=== PATIENT | female | born 1955 | race Caucasian/White ===

== ENCOUNTER 2019-11-03 08:24 | Outpatient (CLI) | payer BC, SELFPAY ==
--- NOTE | ~2019-11-03 | MM_ITS ---
EXAMINATION: MM screening [facility] BI w susanne HISTORY: Screening mammogram TECHNIQUE: Craniocaudal and mediolateral oblique 3-D tomosynthesis images were obtained and synthetic 2-D images were generated. CAD analysis was submitted and interpreted. COMPARISON: Comparison to multiple prior studies sequentially, with oldest reviewed study dated 04/03. BREAST PARENCHYMAL COMPOSITION: There are scattered areas of fibroglandular density. FINDINGS: There is no evidence of suspicious mass, calcification, or architectural distortion to sugg est malignancy in either breast. There has been no suspicious interval change. IMPRESSION: 1. No mammographic evidence of malignancy. 2. Recommend routine screening mammography in one year. BI-RADS Category 1: Negative Reviewed, dictated and finalized at location A.
== END 2019-11-03 08:25 | disposition home or self-care (01) ==
LOC: ANHIMG 08:26
PROVIDERS: PCP Family Medicine; Visit Provider Obstetrics & Gynecology
DX: Z12.31 Encounter for screening mammogram for malignant neoplasm of breast (principal)
CPT/HCPCS: 77063; 77067

== ENCOUNTER → 2019-12-15 16:18 | Outpatient (CLI) | payer BC, SELFPAY ==
--- NOTE | ~2019-12-15 | XR_ITS ---
EXAMINATION: XR ankle RT min 3V EXAM DATE: 12/15/2019 16:31 INDICATION: Initial encounter following injury, with pain of the right ankle. TECHNIQUE: Right ankle frontal, lateral and oblique projections obtained and reviewed. Comparison is made to prior examination from 10/19/2013. FINDINGS: The right ankle mortise appears intact. Small inferior calcaneal spur. There are no acut e fractures or dislocations identified. There is no subcutaneous gas. The soft tissue is unremarkab le. There are no radiopaque foreign bodies. IMPRESSION: 1. XR ankle RT min 3V exam without acute osseous findings. Reviewed, dictated and finalized at location A.
== END ==
PROVIDERS: PCP Family Medicine; Visit Provider Family Medicine
DX: S99.911A Unspecified injury of right ankle, initial encounter (principal); E78.2 Mixed hyperlipidemia; I10 Essential (primary) hypertension; E03.9 Hypothyroidism, unspecified; E04.1 Nontoxic single thyroid nodule; E55.9 Vitamin D deficiency, unspecified; R73.03 Prediabetes; Z78.0 Asymptomatic menopausal state
CPT/HCPCS: 73610

== ENCOUNTER 2020-03-06 13:14 | Outpatient (CLI) | payer BC, SELFPAY ==
[2020-03-06 13:28] LABS: Basophils Absolute Auto 0.1 K/mm3 (0.0-0.1); Basophils Percent Auto 2.1 % (0.2-1.2); Eosinophils Absolute Auto 0.2 K/mm3 (0-0.3); Eosinophils Percent Auto 4.5 % (0-4.4); Hemoglobin 14.4 g/dL (12.0-15.0); Immature Granulocyte Absolute 0.01 K/mm3 (0.00-0.031); Immature Granulocyte Percent A 0.2 % (0-0.5); Lymphocytes Absolute Auto 2.01 K/mm3 (0.9-3.2); Lymphocytes Percent Auto 37.9 % (18.3-44.2); Mean Corpuscular Hemoglobin 28.8 pg (26-34); Mean Platelet Volume 9.4 fl (7.4-10.4); Monocytes Absolute Auto 0.3 K/mm3 (0.1-0.6); Monocytes Percent Auto 6.4 % (2.6-8.5); Neutrophils Absolute Auto 2.6 K/mm3 (1.3-6.7); Neutrophils Percent Auto 48.9 % (45.5-73.1); Platelet Count Result 759 k/mm3 (150-375); Red Cell Distribution Width 15.9 % (11.5-14.5); White Blood Count 5.3 K/mm3 (4.5-10.0)
[2020-03-06 13:32] LABS: Blood Urea Nitrogen 11 mg/dL (8-26); Carbon Dioxide 32 mmol/L (22-30); Chloride 99 mmol/L (98-109); Estimated Glomerular Filt Rate 56; Glucose 136 mg/dL (70-105); Potassium 3.7 mmol/L (3.5-4.9); Sodium 141 mmol/L (138-146)
== END 2020-03-06 13:15 | disposition home or self-care (01) ==
LOC: ANHLAB 13:16
PROVIDERS: PCP Family Medicine; Visit Provider Internal Medicine Hematology & Oncology
DX: D47.3 Essential (hemorrhagic) thrombocythemia (principal)
CPT/HCPCS: 36415; 80048; 85025

== ENCOUNTER 2020-03-21 13:12 | Outpatient (CLI) | payer BC, SELFPAY ==
[2020-03-21 13:33] LABS: Basophils Absolute Auto 0.1 K/mm3 (0.0-0.1); Basophils Percent Auto 1.9 % (0.2-1.2); Eosinophils Absolute Auto 0.1 K/mm3 (0-0.3); Eosinophils Percent Auto 1.7 % (0-4.4); Hemoglobin 14.3 g/dL (12.0-15.0); Immature Granulocyte Absolute 0.01 K/mm3 (0.00-0.031); Immature Granulocyte Percent A 0.2 % (0-0.5); Lymphocytes Percent Auto 28.1 % (18.3-44.2); Mean Corpuscular HGB Conc 32.5 g/dl (32-36); Mean Corpuscular Hemoglobin 30.1 pg (26-34); Mean Corpuscular Volume 92.6 fl (80-100); Mean Platelet Volume 9.8 fl (7.4-10.4); Monocytes Absolute Auto 0.3 K/mm3 (0.1-0.6); Neutrophils Percent Auto 63.1 % (45.5-73.1); Platelet Count Result 533 k/mm3 (150-375); Red Blood Count 4.75 M/mm3 (4.2-5.4); Red Cell Distribution Width 17.5 % (11.5-14.5); White Blood Count 6.4 K/mm3 (4.5-10.0)
[2020-03-21 13:37] LABS: Blood Urea Nitrogen 12 mg/dL (8-26); Carbon Dioxide 31 mmol/L (22-30); Chloride 99 mmol/L (98-109); Estimated Glomerular Filt Rate > 60; Glucose 139 mg/dL (70-105); Potassium 3.7 mmol/L (3.5-4.9); Sodium 142 mmol/L (138-146)
== END 2020-03-21 13:13 | disposition home or self-care (01) ==
LOC: ANHLAB 13:13
PROVIDERS: PCP Family Medicine; Visit Provider Internal Medicine Hematology & Oncology
DX: D47.3 Essential (hemorrhagic) thrombocythemia (principal)
CPT/HCPCS: 36415; 80048; 85025

== ENCOUNTER 2020-04-19 14:13 | Outpatient (CLI) | payer BC, SELFPAY ==
[2020-04-19 14:25] LABS: Basophils Absolute Auto 0.1 K/mm3 (0.0-0.1); Eosinophils Absolute Auto 0.1 K/mm3 (0-0.3); Eosinophils Percent Auto 1.4 % (0-4.4); Hematocrit 40.8 % (37.0-47.0); Hemoglobin 13.6 g/dL (12.0-15.0); Immature Granulocyte Absolute 0.01 K/mm3 (0.00-0.031); Immature Granulocyte Percent A 0.1 % (0-0.5); Lymphocytes Absolute Auto 1.89 K/mm3 (0.9-3.2); Lymphocytes Percent Auto 27.3 % (18.3-44.2); Mean Corpuscular HGB Conc 33.3 g/dl (32-36); Mean Corpuscular Hemoglobin 31.4 pg (26-34); Mean Corpuscular Volume 94.2 fl (80-100); Mean Platelet Volume 9.6 fl (7.4-10.4); Monocytes Absolute Auto 0.5 K/mm3 (0.1-0.6); Monocytes Percent Auto 6.6 % (2.6-8.5); Neutrophils Absolute Auto 4.4 K/mm3 (1.3-6.7); Neutrophils Percent Auto 63.6 % (45.5-73.1); Platelet Count Result 442 k/mm3 (150-375); Red Blood Count 4.33 M/mm3 (4.2-5.4); White Blood Count 6.9 K/mm3 (4.5-10.0)
[2020-04-19 15:40] LABS: Blood Urea Nitrogen 13 mg/dL (8-26); Carbon Dioxide 33 mmol/L (22-30); Chloride 100 mmol/L (98-109); Estimated Glomerular Filt Rate 56; Potassium 3.6 mmol/L (3.5-4.9); Sodium 143 mmol/L (138-146)
[2020-04-19 15:41] LABS: Glucose 105 mg/dL (70-105)
== END 2020-04-19 14:14 | disposition home or self-care (01) ==
LOC: ANHLAB 14:15
PROVIDERS: PCP Family Medicine; Visit Provider Internal Medicine Hematology & Oncology
DX: D47.3 Essential (hemorrhagic) thrombocythemia (principal)
CPT/HCPCS: 36415; 80048; 85025

== ENCOUNTER 2020-05-17 11:24 | Outpatient (CLI) | payer BC, SELFPAY ==
[2020-05-17 11:39] LABS: Hematocrit 42.3 % (37.0-47.0); Hemoglobin 13.9 g/dL (12.0-15.0); Mean Corpuscular HGB Conc 32.9 g/dl (32-36); Mean Corpuscular Hemoglobin 31.8 pg (26-34); Mean Corpuscular Volume 96.8 fl (80-100); Mean Platelet Volume 9.6 fl (7.4-10.4); Platelet Count Result 571 k/mm3 (150-375); Red Blood Count 4.37 M/mm3 (4.2-5.4); Red Cell Distribution Width 15.9 % (11.5-14.5); White Blood Count 8.3 K/mm3 (4.5-10.0)
[2020-05-17 16:36] LABS: Anion Gap 3 mmol/L (8-16); Blood Urea Nitrogen 14 mg/dL (7-17); Calcium 9.9 mg/dL (8.4-10.2); Carbon Dioxide 36 mmol/L (22-30); Chloride 101 mmol/L (98-107); Estimated Glomerular Filt Rate > 60; Glucose 104 mg/dL (65-105); Potassium 4.4 mmol/L (3.4-5.0); Sodium 140 mmol/L (137-145)
== END 2020-05-17 11:25 | disposition home or self-care (01) ==
LOC: ANHLAB 11:26
PROVIDERS: PCP Family Medicine; Visit Provider Internal Medicine Hematology & Oncology
DX: D47.3 Essential (hemorrhagic) thrombocythemia (principal)
CPT/HCPCS: 36415; 80048; 85027

== ENCOUNTER 2020-06-20 13:58 | Outpatient (CLI) | payer BC, SELFPAY ==
[2020-06-20 14:10] LABS: Basophils Absolute Auto 0.1 K/mm3 (0.0-0.1); Eosinophils Absolute Auto 0.1 K/mm3 (0-0.3); Eosinophils Percent Auto 1.1 % (0-4.4); Hematocrit 43.1 % (37.0-47.0); Immature Granulocyte Absolute 0.02 K/mm3 (0.00-0.031); Immature Granulocyte Percent A 0.2 % (0-0.5); Lymphocytes Absolute Auto 2.38 K/mm3 (0.9-3.2); Lymphocytes Percent Auto 27.3 % (18.3-44.2); Mean Corpuscular HGB Conc 32.5 g/dl (32-36); Mean Corpuscular Hemoglobin 32.7 pg (26-34); Mean Corpuscular Volume 100.7 fl (80-100); Mean Platelet Volume 9.8 fl (7.4-10.4); Monocytes Absolute Auto 0.7 K/mm3 (0.1-0.6); Monocytes Percent Auto 7.7 % (2.6-8.5); Neutrophils Absolute Auto 5.5 K/mm3 (1.3-6.7); Neutrophils Percent Auto 62.7 % (45.5-73.1); Platelet Count Result 634 k/mm3 (150-375); Red Blood Count 4.28 M/mm3 (4.2-5.4); Red Cell Distribution Width 12.9 % (11.5-14.5); White Blood Count 8.7 K/mm3 (4.5-10.0)
== END 2020-06-20 13:59 | disposition home or self-care (01) ==
LOC: ANHLAB 14:00
PROVIDERS: PCP Family Medicine; Visit Provider Internal Medicine Hematology & Oncology
DX: D47.3 Essential (hemorrhagic) thrombocythemia (principal)
CPT/HCPCS: 36415; 85025

== ENCOUNTER 2020-08-22 08:46 | Outpatient (CLI) | payer BC, SELFPAY ==
[2020-08-22 09:04] LABS: Basophils Absolute Auto 0.1 K/mm3 (0.0-0.1); Basophils Percent Auto 0.9 % (0.2-1.2); Eosinophils Absolute Auto 0.1 K/mm3 (0-0.3); Eosinophils Percent Auto 1.2 % (0-4.4); Hematocrit 42.8 % (37.0-47.0); Immature Granulocyte Absolute 0.02 K/mm3 (0.00-0.031); Immature Granulocyte Percent A 0.3 % (0-0.5); Lymphocytes Absolute Auto 2.03 K/mm3 (0.9-3.2); Lymphocytes Percent Auto 31.2 % (18.3-44.2); Mean Corpuscular HGB Conc 32.7 g/dl (32-36); Mean Corpuscular Hemoglobin 32.6 pg (26-34); Mean Corpuscular Volume 99.5 fl (80-100); Mean Platelet Volume 9.2 fl (7.4-10.4); Monocytes Absolute Auto 0.4 K/mm3 (0.1-0.6); Monocytes Percent Auto 6.5 % (2.6-8.5); Neutrophils Absolute Auto 3.9 K/mm3 (1.3-6.7); Neutrophils Percent Auto 59.9 % (45.5-73.1); Platelet Count Result 414 k/mm3 (150-375); Red Cell Distribution Width 13.5 % (11.5-14.5); White Blood Count 6.5 K/mm3 (4.5-10.0)
[2020-08-22 09:07] LABS: Blood Urea Nitrogen 12 mg/dL (8-26); Carbon Dioxide 31 mmol/L (22-30); Chloride 99 mmol/L (98-109); Estimated Glomerular Filt Rate 9; Glucose 108 mg/dL (70-105); Potassium 3.7 mmol/L (3.5-4.9); Sodium 140 mmol/L (138-146)
[2020-08-22 11:18] LABS: Alanine Aminotransferase 12 U/L (4-35); Albumin Level 4.5 g/dL (3.5-5.1); Alkaline Phosphatase 68 U/L (38-126); Anion Gap 6 mmol/L (8-16); Aspartate Amino Transferase 21 U/L (14-36); Bilirubin,Total 0.4 mg/dL (0.2-1.3); Blood Urea Nitrogen 13 mg/dL (7-17); Calcium 9.5 mg/dL (8.4-10.2); Carbon Dioxide 32 mmol/L (22-30); Chloride 101 mmol/L (98-107); Estimated Glomerular Filt Rate > 60; Glucose 80 mg/dL (65-105); Potassium 4.2 mmol/L (3.4-5.0); Sodium 139 mmol/L (137-145)
== END 2020-08-22 08:47 | disposition home or self-care (01) ==
LOC: ANHLAB 08:47
PROVIDERS: PCP Family Medicine; Visit Provider Internal Medicine Hematology & Oncology
DX: D47.3 Essential (hemorrhagic) thrombocythemia (principal)
CPT/HCPCS: 36415; 80048; 80053; 85025

== ENCOUNTER 2020-10-22 09:37 | Outpatient (CLI) | payer BC, SELFPAY ==
[2020-10-22 09:53] LABS: Basophils Absolute Auto 0.1 K/mm3 (0.0-0.1); Eosinophils Absolute Auto 0.1 K/mm3 (0-0.3); Eosinophils Percent Auto 1.2 % (0-4.4); Hematocrit 43.2 % (37.0-47.0); Hemoglobin 14.1 g/dL (12.0-15.0); Immature Granulocyte Absolute 0.02 K/mm3 (0.00-0.031); Immature Granulocyte Percent A 0.3 % (0-0.5); Lymphocytes Absolute Auto 1.96 K/mm3 (0.9-3.2); Lymphocytes Percent Auto 28.3 % (18.3-44.2); Mean Corpuscular HGB Conc 32.6 g/dl (32-36); Mean Corpuscular Hemoglobin 32.8 pg (26-34); Mean Corpuscular Volume 100.5 fl (80-100); Mean Platelet Volume 9.5 fl (7.4-10.4); Monocytes Absolute Auto 0.5 K/mm3 (0.1-0.6); Monocytes Percent Auto 7.2 % (2.6-8.5); Neutrophils Absolute Auto 4.3 K/mm3 (1.3-6.7); Platelet Count Result 456 k/mm3 (150-375); Red Cell Distribution Width 12.8 % (11.5-14.5); White Blood Count 6.9 K/mm3 (4.5-10.0)
[2020-10-22 09:58] LABS: Blood Urea Nitrogen 12 mg/dL (8-26); Carbon Dioxide 31 mmol/L (22-30); Chloride 101 mmol/L (98-109); Estimated Glomerular Filt Rate 13; Glucose 106 mg/dL (70-105); Potassium 4.5 mmol/L (3.5-4.9); Sodium 143 mmol/L (138-146)
== END 2020-10-22 09:38 | disposition home or self-care (01) ==
LOC: ANHLAB 09:40
PROVIDERS: PCP Family Medicine; Visit Provider Internal Medicine Hematology & Oncology
DX: D47.3 Essential (hemorrhagic) thrombocythemia (principal)
CPT/HCPCS: 36415; 80048; 85025

== ENCOUNTER 2020-11-06 07:50 | Outpatient (CLI) | payer BC, SELFPAY ==
--- NOTE | ~2020-11-06 | MM_ITS ---
EXAMINATION: MM screening [facility] w susanne HISTORY: Screening mammogram, family history of breast cancer in her mother. TECHNIQUE: Craniocaudal and mediolateral oblique 3-D tomosynthesis images were obtained and synthetic 2-D images were generated. CAD analysis was submitted and interpreted. COMPARISON: 11/03/2019, 08/16/2018, 07/01/2017 BREAST PARENCHYMAL COMPOSITION: There are scattered areas of fibroglandular density. FINDINGS: Again noted is stable architectural distortion in the left breast at the site of prior exci sional biopsy. There is no evidence of suspicious mass, calcification, or architectural distortion to suggest malignancy in either breast. There has been no suspicious interval change. IMPRESSION: 1. No mammographic evidence of malignancy. 2. Recommend routine screening mammography in one year. BI-RADS Category 2: Benign finding(s). Reviewed, dictated and finalized at location A.
== END 2020-11-06 07:51 | disposition home or self-care (01) ==
PROVIDERS: PCP Family Medicine; Visit Provider Obstetrics & Gynecology
DX: Z12.31 Encounter for screening mammogram for malignant neoplasm of breast (principal)
CPT/HCPCS: 77063; 77067

== ENCOUNTER 2021-01-04 08:50 | Outpatient (CLI) | payer BC, SELFPAY ==
[2021-01-04 09:17] LABS: Hematocrit 42.8 % (37.0-47.0); Hemoglobin 14.2 g/dL (12.0-15.0); Mean Corpuscular HGB Conc 33.2 g/dl (32-36); Mean Corpuscular Hemoglobin 33.8 pg (26-34); Mean Corpuscular Volume 101.9 fl (80-100); Mean Platelet Volume 9.4 fl (7.4-10.4); Platelet Count Result 496 k/mm3 (150-375); Red Cell Distribution Width 11.9 % (11.5-14.5); White Blood Count 7.5 K/mm3 (4.5-10.0)
[2021-01-04 12:31] LABS: Add Urine Microscopic? NO; Appearance Urine Clear (Clear); Bilirubin Urine Negative (Negative); Blood Urine Negative (Negative); Color Urine Colorless (Yellow); Glucose Urine UA Negative (Negative); Ketones Urine Negative (Negative); Leukocyte Esterase Ur Negative LEU/UL (NEGATIVE); Nitrate Urine Negative (Negative); Protein Urine Negative (Negative); Urobilinogen Urine Negative mg/dL (<2.0)
[2021-01-04 12:39] LABS: Anion Gap 10 mmol/L (8-16); Blood Urea Nitrogen 14 mg/dL (7-17); Calcium 9.8 mg/dL (8.4-10.2); Carbon Dioxide 29 mmol/L (22-30); Chloride 101 mmol/L (98-107); Estimated Glomerular Filt Rate > 60; Glucose 92 mg/dL (65-110); Potassium 4.2 mmol/L (3.4-5.0); Sodium 140 mmol/L (137-145)
[2021-01-04 12:40] LABS: Specific Grav Ur 1.003 (1.001-1.035)
[2021-01-04 12:58] LABS: Vitamin D 25 Hydroxy 46.7 ng/mL
[2021-01-15 11:40] LABS: Parathyroid Hormone Related Pr 11
== END 2021-01-04 08:51 | disposition home or self-care (01) ==
LOC: ANHLAB 08:52
PROVIDERS: PCP Family Medicine; Visit Provider Family Medicine
DX: N28.9 Disorder of kidney and ureter, unspecified (principal); E55.9 Vitamin D deficiency, unspecified; E03.9 Hypothyroidism, unspecified
CPT/HCPCS: 36415; 80048; 81003; 82306; 83519; 84443; 85027

== ENCOUNTER 2021-01-15 09:12 | Outpatient (CLI) | payer BC, SELFPAY ==
[2021-01-15 09:29] LABS: Basophils Absolute Auto 0.1 K/mm3 (0.0-0.1); Basophils Percent Auto 1.2 % (0.2-1.2); Eosinophils Absolute Auto 0.1 K/mm3 (0-0.3); Eosinophils Percent Auto 1.3 % (0-4.4); Hematocrit 42.1 % (37.0-47.0); Hemoglobin 13.8 g/dL (12.0-15.0); Immature Granulocyte Absolute 0.02 K/mm3 (0.00-0.031); Immature Granulocyte Percent A 0.3 % (0-0.5); Lymphocytes Absolute Auto 1.61 K/mm3 (0.9-3.2); Lymphocytes Percent Auto 26.9 % (18.3-44.2); Mean Corpuscular HGB Conc 32.8 g/dl (32-36); Mean Corpuscular Hemoglobin 33.3 pg (26-34); Mean Corpuscular Volume 101.4 fl (80-100); Mean Platelet Volume 9.3 fl (7.4-10.4); Monocytes Absolute Auto 0.4 K/mm3 (0.1-0.6); Monocytes Percent Auto 6.5 % (2.6-8.5); Neutrophils Absolute Auto 3.8 K/mm3 (1.3-6.7); Neutrophils Percent Auto 63.8 % (45.5-73.1); Platelet Count Result 454 k/mm3 (150-375); Red Blood Count 4.15 M/mm3 (4.2-5.4)
[2021-01-15 10:30] LABS: Alanine Aminotransferase 12 U/L (4-35); Albumin Level 4.4 g/dL (3.5-5.1); Alkaline Phosphatase 69 U/L (38-126); Anion Gap 8 mmol/L (8-16); Aspartate Amino Transferase 40 U/L (14-36); Bilirubin,Total 0.5 mg/dL (0.2-1.3); Blood Urea Nitrogen 13 mg/dL (7-17); Calcium 9.4 mg/dL (8.4-10.2); Carbon Dioxide 32 mmol/L (22-30); Chloride 101 mmol/L (98-107); Estimated Glomerular Filt Rate > 60; Glucose 108 mg/dL (65-110); Potassium 4.5 mmol/L (3.4-5.0); Sodium 141 mmol/L (137-145)
== END 2021-01-15 09:13 | disposition home or self-care (01) ==
LOC: ANHLAB 09:16
PROVIDERS: PCP Family Medicine; Visit Provider Internal Medicine Hematology & Oncology
DX: D47.3 Essential (hemorrhagic) thrombocythemia (principal)
CPT/HCPCS: 36415; 80053; 85025

== ENCOUNTER 2021-07-15 13:33 | Outpatient (CLI) | payer MEDICARE, OTHER, SELFPAY ==
[2021-07-15 13:53] LABS: Basophils Absolute Auto 0.1 K/mm3 (0.0-0.1); Basophils Percent Auto 0.9 % (0.2-1.2); Eosinophils Absolute Auto 0.1 K/mm3 (0-0.3); Eosinophils Percent Auto 1.1 % (0-4.4); Hematocrit 44.7 % (37.0-47.0); Hemoglobin 14.3 g/dL (12.0-15.0); Immature Granulocyte Absolute 0.02 K/mm3 (0.00-0.031); Immature Granulocyte Percent A 0.2 % (0-0.5); Lymphocytes Absolute Auto 2.23 K/mm3 (0.9-3.2); Lymphocytes Percent Auto 25.6 % (18.3-44.2); Mean Corpuscular Hemoglobin 33.9 pg (26-34); Mean Corpuscular Volume 105.9 fl (80-100); Mean Platelet Volume 9.7 fl (7.4-10.4); Monocytes Absolute Auto 0.7 K/mm3 (0.1-0.6); Monocytes Percent Auto 7.6 % (2.6-8.5); Neutrophils Absolute Auto 5.6 K/mm3 (1.3-6.7); Neutrophils Percent Auto 64.6 % (45.5-73.1); Platelet Count Result 547 k/mm3 (150-375); Red Blood Count 4.22 M/mm3 (4.2-5.4); Red Cell Distribution Width 12.7 % (11.5-14.5); White Blood Count 8.7 K/mm3 (4.5-10.0)
[2021-07-15 13:56] LABS: Blood Urea Nitrogen 20 mg/dL (8-26); Carbon Dioxide 30 mmol/L (22-30); Chloride 100 mmol/L (98-109); Estimated Glomerular Filt Rate 45; Glucose 112 mg/dL (70-105); Potassium 3.8 mmol/L (3.5-4.9); Sodium 142 mmol/L (138-146)
[2021-07-15 14:18] LABS: Alanine Aminotransferase 19 U/L (4-35); Albumin Level 4.8 g/dL (3.5-5.1); Alkaline Phosphatase 76 U/L (38-126); Anion Gap 4 mmol/L (8-16); Aspartate Amino Transferase 164 U/L (14-36); Bilirubin,Total 0.5 mg/dL (0.2-1.3); Blood Urea Nitrogen 20 mg/dL (7-17); Calcium 9.3 mg/dL (8.4-10.2); Carbon Dioxide 34 mmol/L (22-30); Chloride 102 mmol/L (98-107); Estimated Glomerular Filt Rate > 60; Glucose 109 mg/dL (65-110); Potassium 3.8 mmol/L (3.4-5.0); Sodium 140 mmol/L (137-145)
[2021-07-15 14:20] LABS: Hemoglobin A1C 5.7 % (<5.7)
== END 2021-07-15 13:34 | disposition home or self-care (01) ==
LOC: ANHLAB 13:36
PROVIDERS: PCP Family Medicine; Visit Provider Internal Medicine Hematology & Oncology
DX: D47.3 Essential (hemorrhagic) thrombocythemia (principal); R73.03 Prediabetes; N28.9 Disorder of kidney and ureter, unspecified; E03.9 Hypothyroidism, unspecified
CPT/HCPCS: 36415; 80053; 83036; 84443; 85025

== ENCOUNTER 2021-07-23 14:28 | Outpatient (CLI) | payer MEDICARE, OTHER, SELFPAY ==
[2021-07-23 20:09] LABS: Hepatitis B Surface Antigen Negative (Negative)
[2021-07-23 20:15] LABS: HAV RESULT Negative (Negative); Hepatitis B Core IgM Result Negative (Negative)
[2021-07-23 20:27] LABS: Hepatitis C Virus Antibody Negative (Negative)
== END 2021-07-23 14:29 | disposition home or self-care (01) ==
LOC: ANHBWCLAB 14:31
PROVIDERS: PCP Family Medicine; Visit Provider Family Medicine
DX: R74.01 Elevation of levels of liver transaminase levels (principal)
CPT/HCPCS: 36415; 80074

== ENCOUNTER 2021-08-09 08:30 | Outpatient (CLI) | payer MEDICARE, OTHER, SELFPAY ==
--- NOTE | ~2021-08-09 | US_ITS ---
EXAMINATION: US abdomen limited EXAM DATE: 08/09/2021 09:11 INDICATION: R74.01 - Elevation of levels of liver transaminase levels TECHNIQUE: Multiple grayscale and Doppler images of the abdomen right upper quadrant were obtained (danae garcia a technologist who performed the scan) and subsequently reviewed. There is no prior study for [place] abbasi. FINDINGS: The pancreatic head and body are normal in appearance. The pancreatic tail is not visualized. The l iver has normal echogenicity and contour. There are no focal liver lesions identified. There is no evidence of intrahepatic biliary duct dilation. Portal venous flow was seen in the hepatopedal, nor mal direction and has normal Doppler waveform. No right-sided hydronephrosis. Common bile duct measures 5 mm, which is normal. The gallbladder wall is normal in thickness, with ex pected amount of distention. No sonographic evidence of pericholecystic fluid. There is cholelithia sis. Technologist performing exam reports patient did not demonstrate sonographic Calvo's sign. P valorie note that this sign is less reliable in patients who have received pain medication. IMPRESSION: Cholelithiasis. Reviewed, dictated and finalized at location A. IMPRESSION: Cholelithiasis.
== END 2021-08-09 08:31 | disposition home or self-care (01) ==
LOC: ANHIMG 08:33
PROVIDERS: PCP Family Medicine; Visit Provider Family Medicine
DX: R74.01 Elevation of levels of liver transaminase levels (principal); K80.20 Calculus of gallbladder without cholecystitis without obstruction
CPT/HCPCS: 76705

== ENCOUNTER 2021-11-14 13:36 | Outpatient (CLI) | payer MEDICARE, OTHER, SELFPAY ==
[2021-11-14 13:50] LABS: Basophils Absolute Auto 0.1 K/mm3 (0.0-0.1); Eosinophils Absolute Auto 0.1 K/mm3 (0-0.3); Eosinophils Percent Auto 1.6 % (0-4.4); Hematocrit 40.1 % (37.0-47.0); Immature Granulocyte Absolute 0.02 K/mm3 (0.00-0.031); Immature Granulocyte Percent A 0.3 % (0-0.5); Lymphocytes Absolute Auto 2.11 K/mm3 (0.9-3.2); Lymphocytes Percent Auto 31.5 % (18.3-44.2); Mean Corpuscular HGB Conc 32.4 g/dl (32-36); Mean Corpuscular Hemoglobin 33.7 pg (26-34); Mean Corpuscular Volume 103.9 fl (80-100); Mean Platelet Volume 9.7 fl (7.4-10.4); Monocytes Absolute Auto 0.5 K/mm3 (0.1-0.6); Monocytes Percent Auto 6.7 % (2.6-8.5); Neutrophils Absolute Auto 3.9 K/mm3 (1.3-6.7); Neutrophils Percent Auto 58.9 % (45.5-73.1); Platelet Count Result 484 k/mm3 (150-375); Red Blood Count 3.86 M/mm3 (4.2-5.4); Red Cell Distribution Width 12.5 % (11.5-14.5); White Blood Count 6.7 K/mm3 (4.5-10.0)
[2021-11-14 13:53] LABS: Blood Urea Nitrogen 14 mg/dL (8-26); Carbon Dioxide 31 mmol/L (22-30); Chloride 101 mmol/L (98-109); Estimated Glomerular Filt Rate 41; Glucose 123 mg/dL (70-105); Ionized Calcium (POC) 1.15 mmol/L (1.11-1.31); Sodium 140 mmol/L (138-146)
== END 2021-11-14 13:37 | disposition home or self-care (01) ==
LOC: ANHLAB 13:39
PROVIDERS: PCP Family Medicine; Visit Provider Internal Medicine Hematology & Oncology
DX: D47.3 Essential (hemorrhagic) thrombocythemia (principal)
CPT/HCPCS: 36415; 80047; 85025

== ENCOUNTER 2021-11-15 08:36 | Outpatient (CLI) | payer MEDICARE, OTHER, SELFPAY ==
--- NOTE | ~2021-11-15 | MM_ITS ---
EXAMINATION: MM screening [facility] w susanne HISTORY: Screening mammogram, family history of breast cancer in her mother. TECHNIQUE: Craniocaudal and mediolateral oblique 3-D tomosynthesis images were obtained and synthetic 2-D images were generated. CAD analysis was submitted and interpreted. COMPARISON: 11/06/2020, 11/03/2019, 08/16/2018 BREAST PARENCHYMAL COMPOSITION: There are scattered areas of fibroglandular density. FINDINGS: There is no suspicious mass, calcification, or architectural distortion to suggest malignan cy in either breast. There has been no suspicious interval change. IMPRESSION: 1. No mammographic evidence of malignancy. 2. Recommend routine screening mammography in one year. BI-RADS Category 1: Negative Reviewed, dictated and finalized at location A.
== END 2021-11-15 08:37 | disposition home or self-care (01) ==
LOC: ANHIMG 08:38
PROVIDERS: PCP Family Medicine; Visit Provider Obstetrics & Gynecology
DX: Z12.31 Encounter for screening mammogram for malignant neoplasm of breast (principal)
CPT/HCPCS: 77063; 77067

== ENCOUNTER 2022-01-22 07:05 | Outpatient (CLI) | payer MEDICARE, OTHER, SELFPAY ==
[2022-01-22 20:12] LABS: Alanine Aminotransferase 18 U/L (6-35); Albumin Level 4.3 g/dL (3.5-5.1); Alkaline Phosphatase 68 U/L (38-126); Anion Gap 9 mmol/L (8-16); Aspartate Amino Transferase 104 U/L (14-36); Bilirubin,Total 0.6 mg/dL (0.2-1.3); Blood Urea Nitrogen 15 mg/dL (7-17); Calcium 9.4 mg/dL (8.4-10.2); Carbon Dioxide 30 mmol/L (22-30); Chloride 102 mmol/L (98-107); Estimated Glomerular Filt Rate > 60; Glucose 85 mg/dL (65-110); Potassium 4.5 mmol/L (3.4-5.0); Sodium 141 mmol/L (137-145)
[2022-01-22 20:31] LABS: Hemoglobin A1C 5.6 % (<5.7)
== END 2022-01-22 07:06 | disposition home or self-care (01) ==
PROVIDERS: PCP Family Medicine; Visit Provider Family Medicine
DX: R74.8 Abnormal levels of other serum enzymes (principal); R79.89 Other specified abnormal findings of blood chemistry; R73.03 Prediabetes; E78.2 Mixed hyperlipidemia
CPT/HCPCS: 36415; 80048; 80076; 83036; 84443

== ENCOUNTER 2022-03-20 14:14 | Outpatient (CLI) | payer MEDICARE, OTHER, SELFPAY ==
[2022-03-20 14:25] LABS: Basophils Absolute Auto 0.1 K/mm3 (0.0-0.1); Basophils Percent Auto 0.8 % (0.2-1.2); Eosinophils Absolute Auto 0.1 K/mm3 (0-0.3); Hematocrit 39.2 % (37.0-47.0); Immature Granulocyte Absolute 0.01 K/mm3 (0.00-0.031); Immature Granulocyte Percent A 0.2 % (0-0.5); Lymphocytes Percent Auto 31.9 % (18.3-44.2); Mean Corpuscular HGB Conc 33.2 g/dl (32-36); Mean Corpuscular Hemoglobin 34.7 pg (26-34); Mean Corpuscular Volume 104.5 fl (80-100); Mean Platelet Volume 9.8 fl (7.4-10.4); Monocytes Absolute Auto 0.4 K/mm3 (0.1-0.6); Monocytes Percent Auto 6.5 % (2.6-8.5); Neutrophils Absolute Auto 3.9 K/mm3 (1.3-6.7); Neutrophils Percent Auto 58.6 % (45.5-73.1); Platelet Count Result 469 k/mm3 (150-375); Red Blood Count 3.75 M/mm3 (4.2-5.4); Red Cell Distribution Width 12.3 % (11.5-14.5); White Blood Count 6.6 K/mm3 (4.5-10.0)
[2022-03-20 14:29] LABS: Blood Urea Nitrogen 17 mg/dL (8-26); Carbon Dioxide 31 mmol/L (22-30); Chloride 100 mmol/L (98-109); Estimated Glomerular Filt Rate 50; Glucose 114 mg/dL (70-105); Ionized Calcium (POC) 1.22 mmol/L (1.11-1.31); Potassium 3.6 mmol/L (3.5-4.9); Sodium 141 mmol/L (138-146)
== END 2022-03-20 14:15 | disposition home or self-care (01) ==
LOC: ANHLAB 14:14
PROVIDERS: PCP Family Medicine; Visit Provider Internal Medicine Hematology & Oncology
DX: D47.3 Essential (hemorrhagic) thrombocythemia (principal)
CPT/HCPCS: 36415; 80047; 85025

== ENCOUNTER 2022-06-18 08:33 | Outpatient (CLI) | payer MEDICARE, OTHER, SELFPAY ==
[2022-06-18 08:56] LABS: Basophils Absolute Auto 0.1 K/mm3 (0.0-0.1); Eosinophils Absolute Auto 0.1 K/mm3 (0-0.3); Eosinophils Percent Auto 1.6 % (0-4.4); Hematocrit 39.9 % (37.0-47.0); Hemoglobin 13.1 g/dL (12.0-15.0); Immature Granulocyte Absolute 0.02 K/mm3 (0.00-0.031); Immature Granulocyte Percent A 0.3 % (0-0.5); Lymphocytes Absolute Auto 1.86 K/mm3 (0.9-3.2); Lymphocytes Percent Auto 27.2 % (18.3-44.2); Mean Corpuscular HGB Conc 32.8 g/dl (32-36); Mean Corpuscular Hemoglobin 33.9 pg (26-34); Mean Corpuscular Volume 103.4 fl (80-100); Mean Platelet Volume 9.5 fl (7.4-10.4); Monocytes Absolute Auto 0.5 K/mm3 (0.1-0.6); Monocytes Percent Auto 7.2 % (2.6-8.5); Neutrophils Absolute Auto 4.3 K/mm3 (1.3-6.7); Neutrophils Percent Auto 62.7 % (45.5-73.1); Platelet Count Result 520 k/mm3 (150-375); Red Blood Count 3.86 M/mm3 (4.2-5.4); Red Cell Distribution Width 12.4 % (11.5-14.5); White Blood Count 6.9 K/mm3 (4.5-10.0)
[2022-06-18 10:39] LABS: Anion Gap 5 mmol/L (8-16); Blood Urea Nitrogen 16 mg/dL (7-17); Calcium 8.8 mg/dL (8.4-10.2); Carbon Dioxide 30 mmol/L (22-30); Chloride 102 mmol/L (98-107); Estimated Glomerular Filt Rate > 60; Glucose 97 mg/dL (65-110); Potassium 4.2 mmol/L (3.4-5.0); Sodium 137 mmol/L (137-145)
== END 2022-06-18 08:34 | disposition home or self-care (01) ==
LOC: ANHLAB 08:35
PROVIDERS: PCP Family Medicine; Visit Provider Internal Medicine Hematology & Oncology
DX: D47.3 Essential (hemorrhagic) thrombocythemia (principal)
CPT/HCPCS: 36415; 80048; 85025

== ENCOUNTER 2022-07-08 07:01 | Outpatient (CLI) | payer MEDICARE, OTHER, SELFPAY ==
[2022-07-08 19:52] LABS: Hemoglobin A1C 5.7 % (<5.7)
== END 2022-07-08 07:02 | disposition home or self-care (01) ==
PROVIDERS: PCP Family Medicine; Visit Provider Family Medicine
DX: R79.89 Other specified abnormal findings of blood chemistry (principal); E78.2 Mixed hyperlipidemia
CPT/HCPCS: 36415; 83036; 84443

== ENCOUNTER 2022-09-28 16:45 | Emergency (ER) | payer MEDICARE, OTHER, SELFPAY ==
[2022-09-28 16:57] VITALS: BP 133/72; PULSE 100; RESP 16; TEMP 36.9; O2SAT 99
--- NOTE | 2022-09-28 17:07 | ED.SKABFB ---
HPI - Skin/Abscess/Foreign Bdy General Chief complaint: Skin/Abscess/Foreign Body Stated complaint: body rash,bug bite Time Seen by Provider: 09/28/22 17:07 Source: patient, RN notes reviewed and old records reviewed Mode of arrival: ambulatory Limitations: no limitations History of Present Illness HPI narrative: 67 year old female presents to [facility] care with complaints of working in the yard on Thursday and awakening with redness to her left upper arm and having rash on her abdomen and chest.Patient reports that she has been taking Benadryl for the itching and has been applying Benadryl ointment to rash and red area on left upper arm. Patient reports that the redness on her left upper arm has spread today with some inner region raised whelps 5cm X10 cm with total area of 10cm by 22 cm length, area marked with skin marker, is warm to touch. Patient has 2 areas that look like stings or bite layne in inner region on left upper arm. Patient states that splotchy red areas on chest and abdomen has improved still a little itchy. Patient denies any shortness of breath or any difficulty with swallowing.. MD complaint: rash Onset (ago): day(s) (4 days) Severity scale (1-10): 5 Quality: aching and pruritic Treatments prior to arrival: Benadryl and other (Benadryl cream) Related Data Home Medications Medication Instructions Recorded Confirmed aspirin 81 mg tablet,delayed 81 mg PO DAILY 01/21/21 09/28/22 release (Adult Low Dose Aspirin) Allergies Allergy/AdvReac Type Severity Reaction Status Date / Time Penicillins Allergy Mild RASH Verified 09/28/22 17:31 cefaclor Allergy Unknown Rash Verified 09/28/22 17:31 Cephalosporins Allergy Unknown RASH Verified 09/28/22 17:31 fenofibrate Allergy Unknown Joint pain Verified 09/28/22 17:31 Review of Systems Review of Systems: CONSTITUTIONAL: Denies fever, chills, or sweats. CARDIOVASCULAR: Denies chest pain, palpitations, or edema. RESPIRATORY: Denies cough or dyspnea. SKIN: Reports splotchy minimal raised rash on abdomen and chest that is itchy, red rash on left upper arm with inner whelp 5cm X 10cm region with total length 22 cm, with this area increasing in size today patient reports. Appears to be 2 small either bite or stings to inner whelp area on left upper arm, some warmth to tissue, no drainage noted. MUSCULOSKELETAL: Denies joint pain or myalgia. NEUROLOGIC: Denies headache, numbness, or weakness. All systems reviewed & are unremarkable except as noted in HPI and below PMFSH Past Medical History Medical History Acquired hypothyroidism Ankle fracture, left Ankle fracture, right Cystic thyroid nodule Encounter for Papanicolaou smear for cervical cancer screening Essential (primary) hypertension Kidney stones Mixed hyperlipidemia Postmenopausal Prediabetes Screening mammogram, encounter for Vitamin D deficiency, unspecified Surgical History Surgical History H/O eye surgery History of appendectomy History of delivery 07/08/74 breech 08/07/87 w/tubal ligation History of D&C x3 for postmenopausal bleeding History of left breast biopsy 12/11/06 lt breast biopsy--benign History of thyroidectomy 08/16/90 lt thyroid lump removed History of tubal ligation 08/07/87 Family History Family History Father Hypertension Family history of elevated blood lipids Cerebrovascular accident, Onset Age: 74 Family history of alcoholism Mother Hypertension Family history of elevated blood lipids Breast cancer Grandparent Cerebrovascular accident grandfather--stroke Other Family history of chronic obstructive pulmonary disease Family history of malignant neoplasm Family history of mental disorder Social History Social History Sm
[2022-09-28] MEDS: methylPREDNISolone ACETATE 80 MG/ML VIAL IM (17:26)
== END 2022-09-28 17:51 | disposition home or self-care (01) ==
PROVIDERS: Emergency Provider Registered Nurse; PCP Family Medicine
DX: L25.9 Unspecified contact dermatitis, unspecified cause (principal); S40.862A Insect bite (nonvenomous) of left upper arm, initial encounter; W57.XXXA Bitten or stung by nonvenomous insect and other nonvenomous arthropods, initial encounter; E03.9 Hypothyroidism, unspecified; I10 Essential (primary) hypertension; E78.2 Mixed hyperlipidemia; R73.03 Prediabetes; Z79.82 Long term (current) use of aspirin
CPT/HCPCS: 96372; 99213; G0463; J1040

== ENCOUNTER 2022-10-16 14:06 | Outpatient (CLI) | payer MEDICARE, OTHER, SELFPAY ==
[2022-10-16 14:24] LABS: Basophils Absolute Auto 0.1 K/mm3 (0.0-0.1); Basophils Percent Auto 1.5 % (0.2-1.2); Eosinophils Absolute Auto 0.2 K/mm3 (0-0.3); Eosinophils Percent Auto 2.2 % (0-4.4); Hematocrit 42.5 % (37.0-47.0); Hemoglobin 13.9 g/dL (12.0-15.0); Immature Granulocyte Absolute 0.02 K/mm3 (0.00-0.031); Immature Granulocyte Percent A 0.3 % (0-0.5); Lymphocytes Absolute Auto 1.99 K/mm3 (0.9-3.2); Lymphocytes Percent Auto 29.4 % (18.3-44.2); Mean Corpuscular HGB Conc 32.7 g/dl (32-36); Mean Corpuscular Volume 103.9 fl (80-100); Mean Platelet Volume 9.9 fl (7.4-10.4); Monocytes Absolute Auto 0.5 K/mm3 (0.1-0.6); Monocytes Percent Auto 6.8 % (2.6-8.5); Neutrophils Absolute Auto 4.1 K/mm3 (1.3-6.7); Neutrophils Percent Auto 59.8 % (45.5-73.1); Platelet Count Result 484 k/mm3 (150-375); Red Blood Count 4.09 M/mm3 (4.2-5.4); Red Cell Distribution Width 12.8 % (11.5-14.5); White Blood Count 6.8 K/mm3 (4.5-10.0)
[2022-10-16 14:30] LABS: Blood Urea Nitrogen 18 mg/dL (8-26); Carbon Dioxide 29 mmol/L (22-30); Chloride 99 mmol/L (98-109); Estimated Glomerular Filt Rate 41; Glucose 122 mg/dL (70-105); Ionized Calcium (POC) 1.16 mmol/L (1.11-1.31); Potassium 3.6 mmol/L (3.5-4.9); Sodium 140 mmol/L (138-146)
== END 2022-10-16 14:07 | disposition home or self-care (01) ==
LOC: ANHLAB 14:10
PROVIDERS: PCP Family Medicine; Visit Provider Internal Medicine Hematology & Oncology
DX: D47.3 Essential (hemorrhagic) thrombocythemia (principal)
CPT/HCPCS: 36415; 80047; 85025

== ENCOUNTER 2023-01-26 07:00 | Outpatient (CLI) | payer MEDICARE, OTHER, SELFPAY ==
[2023-01-26 18:52] LABS: Cholesterol 182 mg/dL (0-200); HDL Direct 35 mg/dL; Triglycerides 147 mg/dL (<150)
[2023-01-26 19:04] LABS: LDL Cholesterol Direct 98 mg/dL
[2023-01-26 20:16] LABS: Hemoglobin A1C 5.6 % (<5.7)
== END 2023-01-26 07:01 | disposition home or self-care (01) ==
PROVIDERS: PCP Family Medicine; Visit Provider Family Medicine
DX: R79.89 Other specified abnormal findings of blood chemistry (principal); E78.2 Mixed hyperlipidemia
CPT/HCPCS: 36415; 80061; 83036; 84443

== ENCOUNTER 2023-01-30 09:59 | Outpatient (CLI) | payer MEDICARE, OTHER, SELFPAY ==
--- NOTE | ~2023-01-30 | MM_ITS ---
EXAMINATION: MM screening [facility] w susanne HISTORY: Screening mammogram TECHNIQUE: Craniocaudal and mediolateral oblique 3-D tomosynthesis images were obtained and synthetic 2-D images were generated. CAD analysis was submitted and interpreted. COMPARISON: 11/15/2021, 11/06/2020, 11/03/2019 bilateral screening mammogram examinations BREAST PARENCHYMAL COMPOSITION: There are scattered areas of fibroglandular density. FINDINGS: There is no evidence of suspicious mass, calcification, or architectural distortion to sugg est malignancy in either breast. There has been no suspicious interval change. IMPRESSION: 1. No mammographic evidence of malignancy. 2. Recommend routine screening mammography in one year. BI-RADS Category 1: Negative Reviewed, dictated and finalized at location A.
== END 2023-01-30 10:00 | disposition home or self-care (01) ==
LOC: ANHIMG 10:01
PROVIDERS: PCP Family Medicine; Visit Provider Obstetrics & Gynecology
DX: Z12.31 Encounter for screening mammogram for malignant neoplasm of breast (principal)
CPT/HCPCS: 77063; 77067

== ENCOUNTER 2023-02-18 11:00 | Outpatient (CLI) | payer MEDICARE, OTHER, SELFPAY ==
[2023-02-18 11:14] LABS: Basophils Absolute Auto 0.1 K/mm3 (0.0-0.1); Basophils Percent Auto 1.1 % (0.2-1.2); Eosinophils Absolute Auto 0.1 K/mm3 (0-0.3); Eosinophils Percent Auto 1.6 % (0-4.4); Hemoglobin 13.2 g/dL (12.0-15.0); Immature Granulocyte Absolute 0.01 K/mm3 (0.00-0.031); Immature Granulocyte Percent A 0.2 % (0-0.5); Lymphocytes Absolute Auto 1.67 K/mm3 (0.9-3.2); Lymphocytes Percent Auto 30.2 % (18.3-44.2); Mean Corpuscular HGB Conc 32.2 g/dl (32-36); Mean Corpuscular Hemoglobin 33.8 pg (26-34); Mean Corpuscular Volume 104.9 fl (80-100); Mean Platelet Volume 9.4 fl (7.4-10.4); Monocytes Absolute Auto 0.4 K/mm3 (0.1-0.6); Monocytes Percent Auto 7.1 % (2.6-8.5); Neutrophils Absolute Auto 3.3 K/mm3 (1.3-6.7); Neutrophils Percent Auto 59.8 % (45.5-73.1); Platelet Count Result 462 k/mm3 (150-375); Red Blood Count 3.91 M/mm3 (4.2-5.4); Red Cell Distribution Width 12.7 % (11.5-14.5); White Blood Count 5.5 K/mm3 (4.5-10.0)
[2023-02-18 12:09] LABS: Anion Gap 3 mmol/L (8-16); Blood Urea Nitrogen 13 mg/dL (7-17); Calcium 8.8 mg/dL (8.4-10.2); Carbon Dioxide 32 mmol/L (22-30); Chloride 104 mmol/L (98-107); Estimated Glomerular Filt Rate > 60; Glucose 106 mg/dL (65-110); Potassium 4.1 mmol/L (3.4-5.0); Sodium 139 mmol/L (137-145)
== END 2023-02-18 11:01 | disposition home or self-care (01) ==
LOC: ANHLAB 11:02
PROVIDERS: PCP Nurse Practitioner Adult Health; Visit Provider Internal Medicine Hematology & Oncology
DX: D47.3 Essential (hemorrhagic) thrombocythemia (principal)
CPT/HCPCS: 36415; 80048; 85025

== ENCOUNTER 2023-05-14 07:19 | Outpatient (CLI) | payer MEDICARE, OTHER, SELFPAY ==
[2023-05-14 19:36] LABS: Alanine Aminotransferase 16 U/L (6-35); Alkaline Phosphatase 66 U/L (38-126); Anion Gap 3 mmol/L (8-16); Aspartate Amino Transferase 83 U/L (14-36); Bilirubin,Total 0.9 mg/dL (0.2-1.3); Blood Urea Nitrogen 16 mg/dL (7-17); Calcium 9.2 mg/dL (8.4-10.2); Carbon Dioxide 34 mmol/L (22-30); Chloride 103 mmol/L (98-107); Cholesterol 232 mg/dL (0-200); Estimated Glomerular Filt Rate > 60; Glucose 79 mg/dL (65-110); HDL Direct 32 mg/dL; Potassium 4.3 mmol/L (3.4-5.0); Sodium 140 mmol/L (137-145); Triglycerides 152 mg/dL (<150)
[2023-05-14 19:45] LABS: LDL Cholesterol Direct 138 mg/dL
[2023-05-14 19:48] LABS: Vitamin D 25 Hydroxy 20.5 ng/mL
[2023-05-14 20:17] LABS: Hemoglobin A1C 5.7 % (<5.7)
== END 2023-05-14 07:20 | disposition home or self-care (01) ==
PROVIDERS: PCP Nurse Practitioner Adult Health; Visit Provider Nurse Practitioner Adult Health
DX: E78.5 Hyperlipidemia, unspecified (principal); E55.9 Vitamin D deficiency, unspecified; E53.8 Deficiency of other specified B group vitamins; R79.89 Other specified abnormal findings of blood chemistry
CPT/HCPCS: 36415; 80053; 80061; 82306; 82607; 83036

== ENCOUNTER 2023-06-23 11:05 | Outpatient (CLI) | payer MEDICARE, OTHER, SELFPAY ==
[2023-06-23 11:30] LABS: Basophils Absolute Auto 0.1 K/mm3 (0.0-0.1); Basophils Percent Auto 1.2 % (0.2-1.2); Eosinophils Absolute Auto 0.1 K/mm3 (0-0.3); Hematocrit 41.1 % (37.0-47.0); Hemoglobin 13.6 g/dL (12.0-15.0); Immature Granulocyte Absolute 0.01 K/mm3 (0.00-0.031); Immature Granulocyte Percent A 0.2 % (0-0.5); Lymphocytes Absolute Auto 1.77 K/mm3 (0.9-3.2); Lymphocytes Percent Auto 30.3 % (18.3-44.2); Mean Corpuscular HGB Conc 33.1 g/dl (32-36); Mean Corpuscular Hemoglobin 34.6 pg (26-34); Mean Corpuscular Volume 104.6 fl (80-100); Mean Platelet Volume 9.5 fl (7.4-10.4); Monocytes Absolute Auto 0.4 K/mm3 (0.1-0.6); Monocytes Percent Auto 6.8 % (2.6-8.5); Neutrophils Absolute Auto 3.5 K/mm3 (1.3-6.7); Neutrophils Percent Auto 60.5 % (45.5-73.1); Platelet Count Result 534 k/mm3 (150-375); Red Blood Count 3.93 M/mm3 (4.2-5.4); White Blood Count 5.9 K/mm3 (4.5-10.0)
[2023-06-23 11:33] LABS: Blood Urea Nitrogen 11 mg/dL (8-26); Carbon Dioxide 29 mmol/L (22-30); Chloride 100 mmol/L (98-109); Estimated Glomerular Filt Rate 45; Glucose 118 mg/dL (70-105); Ionized Calcium (POC) 1.24 mmol/L (1.11-1.31); Potassium 4.2 mmol/L (3.5-4.9); Sodium 142 mmol/L (138-146)
== END 2023-06-23 11:06 | disposition home or self-care (01) ==
LOC: ANHLAB 11:07
PROVIDERS: PCP Nurse Practitioner Adult Health; Visit Provider Internal Medicine Hematology & Oncology
DX: D47.3 Essential (hemorrhagic) thrombocythemia (principal)
CPT/HCPCS: 36415; 80047; 85025

== ENCOUNTER 2023-07-13 14:44 | Outpatient (NON) | payer MEDICARE, OTHER, SELFPAY | END 2023-07-13 14:45 | disposition home or self-care (01) | PROVIDERS: PCP Nurse Practitioner Adult Health; Visit Provider Surgery | DX: C44.519 Basal cell carcinoma of skin of other part of trunk (principal) | CPT/HCPCS: 88305; 88342 ==

== ENCOUNTER 2023-10-28 10:57 | Outpatient (CLI) | payer MEDICARE, OTHER, SELFPAY ==
[2023-10-28 11:16] LABS: Basophils Absolute Auto 0.1 K/mm3 (0.0-0.1); Basophils Percent Auto 1.1 % (0.2-1.2); Eosinophils Absolute Auto 0.1 K/mm3 (0-0.3); Eosinophils Percent Auto 1.2 % (0-4.4); Hematocrit 41.1 % (37.0-47.0); Hemoglobin 13.3 g/dL (12.0-15.0); Immature Granulocyte Absolute 0.06 K/mm3 (0.00-0.031); Immature Granulocyte Percent A 0.6 % (0-0.5); Lymphocytes Absolute Auto 2.26 K/mm3 (0.9-3.2); Lymphocytes Percent Auto 21.8 % (18.3-44.2); Mean Corpuscular HGB Conc 32.4 g/dl (32-36); Mean Corpuscular Hemoglobin 33.4 pg (26-34); Mean Corpuscular Volume 103.3 fl (80-100); Mean Platelet Volume 9.2 fl (7.4-10.4); Monocytes Absolute Auto 0.6 K/mm3 (0.1-0.6); Monocytes Percent Auto 6.2 % (2.6-8.5); Neutrophils Absolute Auto 7.2 K/mm3 (1.3-6.7); Neutrophils Percent Auto 69.1 % (45.5-73.1); Platelet Count Result 645 k/mm3 (150-375); Red Blood Count 3.98 M/mm3 (4.2-5.4); Red Cell Distribution Width 13.4 % (11.5-14.5); White Blood Count 10.4 K/mm3 (4.5-10.0)
[2023-10-28 11:20] LABS: Blood Urea Nitrogen 18 mg/dL (8-26); Carbon Dioxide 30 mmol/L (22-30); Chloride 99 mmol/L (98-109); Estimated Glomerular Filt Rate 32; Glucose 112 mg/dL (70-105); Ionized Calcium (POC) 1.22 mmol/L (1.11-1.31); Potassium 4.2 mmol/L (3.5-4.9); Sodium 139 mmol/L (138-146)
== END 2023-10-28 10:58 | disposition home or self-care (01) ==
LOC: ANHLAB 11:01
PROVIDERS: PCP Nurse Practitioner Adult Health; Visit Provider Internal Medicine Hematology & Oncology
DX: D47.3 Essential (hemorrhagic) thrombocythemia (principal)
CPT/HCPCS: 36415; 80047; 85025

== ENCOUNTER 2023-10-29 09:05 | Outpatient (CLI) | payer MEDICARE, OTHER, SELFPAY ==
--- NOTE | 2023-10-29 09:14 | ECG_ITS ---
Test Date: 2023-10-29 09:19:15 Measurements Intervals Sheldon Rate: 73 P: 25 MS: 142 QRS: 0 QRSD: 89 T: 11 QT: 344 QTc: 380 Interpretive Statements SINUS RHYTHM MODERATE VOLTAGE CRITERIA FOR LVH, CONSIDER NORMAL VARIANT [MEETS CRITERIA IN ONE OF: R(aVL), S(V1), R(V5), R(V5/V6)+S(V1)] No previous ECG available for comparison Electronically Signed On 10-29-2023 13:36:45 CDT by Irene Panchal M.D.
== END 2023-10-29 09:06 | disposition home or self-care (01) ==
LOC: ANHSURGERY 09:11
PROVIDERS: PCP Nurse Practitioner Adult Health; Visit Provider Surgery
DX: Z01.818 Encounter for other preprocedural examination (principal); I10 Essential (primary) hypertension
CPT/HCPCS: 93005

== ENCOUNTER 2023-12-10 02:03 | Day surgery (SDC) | payer MEDICARE, OTHER, SELFPAY ==
[2023-09-15 09:28] VITALS: BMI 27.3
--- NOTE | 2023-09-15 09:52 | PC.NURSE ---
Report to the Outpatient Waiting Room, entrance under the green pavilion located off [facility], at time __9:30AM on date __09/30/23 . Planned Procedure Time: __11:30AM . Time changes happen often and if your time is changed the preop area will call you the afternoon before. - You and your visitor will be asked to self-screen and do not enter if you have any COVID symptoms. - A mask is optional within the hospital at this time. Patients may have clear liquids (water, carbonated beverages, clear teas, apple juice) until 3 hours prior to surgery with a maximum of 20 ounces. - No food from midnight until time of surgery. Take the following medications with a SIP of water the morning of surgery: ____LEVOTHYROXINE DO NOT STOP ANY OF YOUR OTHER PRESCRIPTION MEDICATIONS PRIOR TO SURGERY ?EXCEPT THE FOLLOWING Medications to discontinue per physician ___HOLD HYDROXYUREA PER DR HADLEY- PATIENT VERIFYING WITH DR HADLEY. HOLD ALL VITAMINS/SUPPLEMENTS 3 DAYS PRE-OP PER ANESTHESIA- LAST DOSE 09/26/23 Please no make-up, nail sinhala, hairspray, perfume, deodorant, or body powder the day of surgery. No jewelry (including any body piercings) or valuables the day of surgery, leave them at home. Please take a shower or bath the night before, or the morning of, surgery with an antibacterial soap. Wear comfortable, loose fitting clothing. - Jewelry must be removed prior to entering the operating room. Rings and piercings that are not removed may be cut off. - The hospital will not accept responsibility for valuables. - Please leave all valuables, including medications, at home the day of surgery. If you are going home after surgery, a licensed driver retraining instructor must drive you home. - NO public transportation without another adult if you receive anesthesia. - We recommend that an adult stay with you for 24 hours following discharge. - We also recommend that you do not drive, make important decision, drink alcoholic beverages, or take any drugs that were not prescribed by your health care provider for at least 24 hours after your discharge time. Follow any additional instructions given to you from your surgeon. If you or anyone in your household have experienced Covid symptoms in the past week, please notify your surgeon or the nurse liaison at the phone number below for possible testing. Telephone instructions given to __PATIENT and asked if any additional questions and then verbalized understanding. Patient advised to call surgeon office or pre surgery nurse liaison [phone] if any additional questions.
--- NOTE | 2023-09-30 08:35 | PM.SD2 ---
Same Day Admit/Disch: HPI History of Present Illness Chief complaint: basal cell skin cancer left shoulder 2.2cm Narrative: Mei Valentino is a 68 year old female with a small skin lesion of the left upper back near her shoulder. That had been there a number of years but earlier this year started intermittently bleeding. It was biopsied in the office and found to be a basal cell carcinoma. The lesion itself measured 2.2 cm in longest dimension. She is taken to surgery now for excision. [facility] Past Medical History Medical History Acquired hypothyroidism Ankle fracture, left Ankle fracture, right Cystic thyroid nodule Encounter for Papanicolaou smear for cervical cancer screening Essential (primary) hypertension Kidney stones Mixed hyperlipidemia Postmenopausal Prediabetes Screening mammogram, encounter for Vitamin D deficiency, unspecified Surgical History Surgical History H/O eye surgery History of appendectomy History of delivery 07/08/74 breech 08/07/87 w/tubal ligation History of D&C x3 for postmenopausal bleeding History of left breast biopsy 12/11/06 lt breast biopsy--benign History of thyroidectomy 08/16/90 lt thyroid lump removed History of tubal ligation 08/07/87 Status post biopsy of skin Left upper shoulder punch biopsy 07/13/[address] Esquivel. Family History Family History Father Hypertension Family history of elevated blood lipids Cerebrovascular accident, Onset Age: 74 Family history of alcoholism Mother Hypertension Family history of elevated blood lipids Breast cancer Grandparent Cerebrovascular accident grandfather--stroke Other Family history of chronic obstructive pulmonary disease Family history of malignant neoplasm Family history of mental disorder Social History Social History Smoking status: Never smoker Alcohol intake: never Substance use: never Substance use type: does not use Lack of Transportation: No Lack of Food: Never True Current Housing: I Have Housing Concerned About Future Housing: No Difficulty Paying Gas/Electric Bills: No Difficulty Paying for Meds: No Currently Unemployed: No Education: High School Diploma/GED Difficulty w/ Childcare or Family Care: No Living arrangements: with family Additional living arrangements comments: DAUGHTER & ALEX Occupation/Education: retired Gender identity (if verbalized by the patient): Female Sexual Orientation (if Verbalized by the Patient): Straight or Heterosexual Spiritual care concerns: No Same Day Admit/Disch: Med Pre-admit Medications Home Medications Medication Instructions Recorded Confirmed Type aspirin 81 mg tablet,delayed 81 mg PO DAILY 01/21/21 09/15/23 History release (Adult Low Dose Aspirin) epinephrine 0.3 mg/0.3 mL 0.3 ml subcut ONCE #2 ea 09/30/22 09/15/23 Rx injection, auto-injector (EpiPen) levothyroxine 50 mcg tablet See Rx Instructions .Route 11/17/22 09/15/23 Rx .COMPLEX #90 tabs hydroxyurea 500 mg capsule See Rx Instructions .Route 12/15/22 09/15/23 Rx .COMPLEX #180 caps losartan 50 mg tablet See Rx Instructions .Route 03/31/23 09/15/23 Rx .COMPLEX #90 tabs hydrochlorothiazide 12.5 mg tablet See Rx Instructions .Route 07/30/23 09/15/23 Rx .COMPLEX #90 tabs cyanocobalamin (vitamin B-12) 1,000 mcg PO DAILY 09/15/23 09/15/23 History 1,000 mcg capsule cholecalciferol (vitamin D3) 1,250 1,250 mcg PO WEEKLY #12 caps 10/05/23 Rx mcg (50,000 unit) capsule Review of Systems Review of Systems All systems reviewed & are unremarkable except as noted in HPI and below (HPI) Exam Const: General: comfortable, no acute distress, alert and awake HENMT: Head: normocephalic and atraumatic Mouth: Yes N
[2023-10-27 09:24] VITALS: BMI 27.0
--- NOTE | 2023-10-27 09:44 | PC.NURSE ---
Report to the Outpatient Waiting Room, entrance under the green pavilion located off [facility], at time __9:30AM on date __11/04/23 . Planned Procedure Time: _11:30AM . Time changes happen often and if your time is changed the preop area will call you the afternoon before. - You and your visitor will be asked to self-screen and do not enter if you have any COVID symptoms. - A mask is optional within the hospital at this time. Patients may have clear liquids (water, carbonated beverages, clear teas, apple juice) until 3 hours prior to surgery with a maximum of 20 ounces. - No food from midnight until time of surgery. Take the following medications with a SIP of water the morning of surgery: LEVOTHYROXINE DO NOT STOP ANY OF YOUR OTHER PRESCRIPTION MEDICATIONS PRIOR TO SURGERY ?EXCEPT THE FOLLOWING Medications to discontinue per physician __HOLD HYDROXYUREA 2 DAYS BEFORE AND 2 [address] AFTER SURGERY PER DR HADLEY-LAST DOSE 11/01/23 HOLD ALL VITAMINS/SUPPLEMENTS 3 DAYS PRE-OP PER ANESTHESIA- LAST DOSE 10/31/23 NO NEED TO HOLD ASPIRIN PER DR HOLLEY(PER PATIENT) Please no make-up, nail sami, hairspray, perfume, deodorant, or body powder the day of surgery. No jewelry (including any body piercings) or valuables the day of surgery, leave them at home. Please take a shower or bath the night before, or the morning of, surgery with an antibacterial soap. Wear comfortable, loose fitting clothing. - Jewelry must be removed prior to entering the operating room. Rings and piercings that are not removed may be cut off. - The hospital will not accept responsibility for valuables. - Please leave all valuables, including medications, at home the day of surgery. If you are going home after surgery, a licensed chair car driver must drive you home. - NO public transportation without another adult if you receive anesthesia. - We recommend that an adult stay with you for 24 hours following discharge. - We also recommend that you do not drive, make important decision, drink alcoholic beverages, or take any drugs that were not prescribed by your health care provider for at least 24 hours after your discharge time. Follow any additional instructions given to you from your surgeon. If you or anyone in your household have experienced Covid symptoms in the past week, please notify your surgeon or the nurse liaison at the phone number below for possible testing. Telephone instructions given to ____PATIENT and asked if any additional questions and then verbalized understanding. Patient advised to call surgeon office or pre surgery nurse liaison [phone] if any additional questions.
--- NOTE | 2023-12-08 10:21 | PC.NURSE ---
Report to the Outpatient Waiting Room, entrance under the green pavilion located off [facility], at time _1000_ on date _[id number]_. Planned Procedure Time: _1200_. Time changes happen often and if your time is changed the preop area will call you the afternoon before. - You and your visitor will be asked to self-screen and do not enter if you have any COVID symptoms. - A mask is optional within the hospital at this time. Patients may have clear liquids (water, carbonated beverages, clear teas, apple juice) until 3 hours prior to surgery with a maximum of 20 ounces. - No food from midnight until time of surgery Take the following medications with a SIP of water the morning of surgery: ____Levothyroxine DO NOT STOP ANY OF YOUR OTHER PRESCRIPTION MEDICATIONS PRIOR TO SURGERY ?EXCEPT THE FOLLOWING Medications to discontinue per physician Hold vitamins ans supplements now till after surgery. Ok to continue taking aspirin. Hold Hydroxyurea as per Dr Del Rosario's instructions.____ Please no make-up, nail indian, hairspray, perfume, deodorant, or body powder the day of surgery. No jewelry (including any body piercings) or valuables the day of surgery, leave them at home. Please take a shower or bath the night before, or the morning of, surgery with an antibacterial soap. Wear comfortable, loose fitting clothing. - Jewelry must be removed prior to entering the operating room. Rings and piercings that are not removed may be cut off. - The hospital will not accept responsibility for valuables. - Please leave all valuables, including medications, at home the day of surgery. If you are going home after surgery, a licensed driver operator must drive you home. - NO public transportation without another adult if you receive anesthesia. - We recommend that an adult stay with you for 24 hours following discharge. - We also recommend that you do not drive, make important decision, drink alcoholic beverages, or take any drugs that were not prescribed by your health care provider for at least 24 hours after your discharge time. Follow any additional instructions given to you from your surgeon. If you or anyone in your household have experienced Covid symptoms in the past week, please notify your surgeon or the nurse liaison at the phone number below for possible testing. Telephone instructions given to __Judy__and asked if any additional questions and then verbalized understanding. Patient advised to call surgeon office or pre surgery nurse liaison [phone] if any additional questions.
--- NOTE | 2023-12-10 07:47 | PM.SD2 ---
Same Day Admit/Disch: HPI History of Present Illness Chief complaint: basal cell skin cancer left shoulder 2.2cm Narrative: Mei Valentino is a 68 year old female Who had a skin lesion on the back of her left shoulder for over 5 years. In July it started bleeding intermittently. She had punch biopsies in the office which showed basal cell skin cancer. She was scheduled to have this excised a couple of different times but had to cancel each time. The last time was due to a bad rash. She is taken to surgery at this time for excision of a 2.2 cm basal cell skin cancer of the left shoulder and back. [facility] Past Medical History Medical History Acquired hypothyroidism Ankle fracture, left Ankle fracture, right Cystic thyroid nodule Encounter for Papanicolaou smear for cervical cancer screening Essential (primary) hypertension Kidney stones Mixed hyperlipidemia Postmenopausal Prediabetes Screening mammogram, encounter for Vitamin D deficiency, unspecified Surgical History Surgical History H/O eye surgery History of appendectomy History of delivery 07/08/74 breech 08/07/87 w/tubal ligation History of D&C x3 for postmenopausal bleeding History of left breast biopsy 12/11/06 lt breast biopsy--benign History of thyroidectomy 08/16/90 lt thyroid lump removed History of tubal ligation 08/07/87 Status post biopsy of skin Left upper shoulder punch biopsy 07/13/[address] Esquivel. Family History Family History Father Hypertension Family history of elevated blood lipids Cerebrovascular accident, Onset Age: 74 Family history of alcoholism Mother Hypertension Family history of elevated blood lipids Breast cancer Grandparent Cerebrovascular accident grandfather--stroke Other Family history of chronic obstructive pulmonary disease Family history of malignant neoplasm Family history of mental disorder Social History Social History Smoking status: Never smoker Alcohol intake: never Substance use: never Substance use type: does not use Lack of Transportation: No Lack of Food: Never True Current Housing: I Have Housing Concerned About Future Housing: No Difficulty Paying Gas/Electric Bills: No Difficulty Paying for Meds: No Currently Unemployed: No Education: High School Diploma/GED Difficulty w/ Childcare or Family Care: No Living arrangements: with family Additional living arrangements comments: DAUGHTER, ALEX, GRANDSON Occupation/Education: retired Gender identity (if verbalized by the patient): Female Sexual Orientation (if Verbalized by the Patient): Straight or Heterosexual Spiritual care concerns: No Same Day Admit/Disch: Med Pre-admit Medications Home Medications Medication Instructions Recorded Confirmed Type aspirin 81 mg tablet,delayed 81 mg PO DAILY 01/21/21 12/10/23 History release (Adult Low Dose Aspirin) epinephrine 0.3 mg/0.3 mL 0.3 ml subcut ONCE #2 ea 09/30/22 12/08/23 Rx injection, auto-injector (EpiPen) hydroxyurea 500 mg capsule See Rx Instructions .Route 12/15/22 12/10/23 Rx .COMPLEX #180 caps losartan 50 mg tablet See Rx Instructions .Route 03/31/23 12/10/23 Rx .COMPLEX #90 tabs hydrochlorothiazide 12.5 mg tablet See Rx Instructions .Route 07/30/23 12/10/23 Rx .COMPLEX #90 tabs cyanocobalamin (vitamin B-12) 1,000 mcg PO DAILY 09/15/23 12/10/23 History 1,000 mcg capsule cholecalciferol (vitamin D3) 1,250 1,250 mcg PO WEEKLY #12 caps 10/05/23 12/10/23 Rx mcg (50,000 unit) capsule levothyroxine 50 mcg tablet 50 mcg PO DAILY #90 tabs 11/10/23 12/10/23 Rx cetirizine 10 mg capsule (Zyrtec) 10 mg PO DAILY 12/10/23 12/10/23 History ibuprofen 600 mg tablet 600 mg PO Q6H PRN pain #14 tabs 12/10/23 Rx tram
[2023-12-10] MEDS: LACTATED RINGERS 1,000 ML 30 ML IV CONT (11:00)
[2023-12-10 11:06] VITALS: BP 137/61; PULSE 82; RESP 16; TEMP 36.1; O2SAT 98
--- NOTE | 2023-12-10 11:29 | WPDANESEPPF ---
Anes - Initial Pre Proc Eval Procedure: Operation Date: 12/10/23 12:00 Proposed Procedures p Excision of Basal Cell Skin Cancer of Left Shoulder - Chema Esquivel MD Date/Time: 12/10/23 11:29 Surgeon: Chema Esquivel MD Pre Op Diagnosis: basal cell skin cancer left shoulder 2.2cm Patient Data Age: 68 Gender: F Height: 1.57 m Weight: 65.7 kg Last Vital Signs Temp 36.1 C L 12/10/23 11:06 Pulse 82 12/10/23 11:06 Resp 16 12/10/23 11:06 BP 137/61 12/10/23 11:06 Pulse Ox 98 12/10/23 11:06 O2 Del Method Room Air 12/10/23 11:06 Allergies Allergy/AdvReac Type Severity Reaction Status Date / Time clindamycin Allergy Intermediate Rash Verified 12/10/23 11:06 Penicillins Allergy Mild RASH Verified 12/10/23 11:06 cefaclor Allergy Unknown Rash Verified 12/10/23 11:06 Cephalosporins Allergy Unknown RASH Verified 12/10/23 11:06 rosuvastatin [From Crestor] AdvReac Intermediate Muscle Verified 12/10/23 11:06 Pain/joint pain fenofibrate AdvReac Unknown Joint pain Verified 12/10/23 11:06 Dill Allergy Severe Rash Uncoded 12/10/23 11:06 Home Medications Medication Instructions Recorded Confirmed Type aspirin 81 mg tablet,delayed 81 mg PO DAILY 01/21/21 12/10/23 History release (Adult Low Dose Aspirin) epinephrine 0.3 mg/0.3 mL 0.3 ml subcut ONCE #2 ea 09/30/22 12/08/23 Rx injection, auto-injector (EpiPen) hydroxyurea 500 mg capsule See Rx Instructions .Route 12/15/22 12/10/23 Rx .COMPLEX #180 caps losartan 50 mg tablet See Rx Instructions .Route 03/31/23 12/10/23 Rx .COMPLEX #90 tabs hydrochlorothiazide 12.5 mg tablet See Rx Instructions .Route 07/30/23 12/10/23 Rx .COMPLEX #90 tabs cyanocobalamin (vitamin B-12) 1,000 mcg PO DAILY 09/15/23 12/10/23 History 1,000 mcg capsule cholecalciferol (vitamin D3) 1,250 1,250 mcg PO WEEKLY #12 caps 10/05/23 12/10/23 Rx mcg (50,000 unit) capsule levothyroxine 50 mcg tablet 50 mcg PO DAILY #90 tabs 11/10/23 12/10/23 Rx cetirizine 10 mg capsule (Zyrtec) 10 mg PO DAILY 12/10/23 12/10/23 History Patient hx anesthesia problems: none Family hx anesthesia problems: none Results Review: All pre-operative results and documents have been reviewed as part of the pre-operative evaluation. [facility] Past Medical History Medical History Acquired hypothyroidism Ankle fracture, left Ankle fracture, right Cystic thyroid nodule Encounter for Papanicolaou smear for cervical cancer screening Essential (primary) hypertension Kidney stones Mixed hyperlipidemia Postmenopausal Prediabetes Screening mammogram, encounter for Vitamin D deficiency, unspecified Surgical History Surgical History H/O eye surgery History of appendectomy History of delivery 07/08/74 breech 08/07/87 w/tubal ligation History of D&C x3 for postmenopausal bleeding History of left breast biopsy 12/11/06 lt breast biopsy--benign History of thyroidectomy 08/16/90 lt thyroid lump removed History of tubal ligation 08/07/87 Status post biopsy of skin Left upper shoulder punch biopsy 07/13/[address] Esquivel. Family History Family History Father Hypertension Family history of elevated blood lipids Cerebrovascular accident, Onset Age: 74 Family history of alcoholism Mother Hypertension Family history of elevated blood lipids Breast cancer Grandparent Cerebrovascular accident grandfather--stroke Other Family history of chronic obstructive pulmonary disease Family history of malignant neoplasm Family history of mental disorder Social History Social History Smoking status: Never smoker Alcohol intake: never Substance use: never Substance use type: does not use Lack of Transportation: No Lack of Food: Never Tr
--- NOTE | 2023-12-10 12:36 | WPDHPUPDATE1 ---
History and Physical Update Update Date/Time: 12/10/23 12:36 History and Physical has been reviewed, including an updated exam of the patient. There are NO changes in the patient's condition. Risks, benefits, and alternatives have been discussed and questions answered. Patient agrees to proceed with procedure.
[2023-12-10] MEDS: ceFAZolin 2 GM/D5W 50 ML 2 GM/50 ML BAG IVPB (12:45)
[2023-12-10] MEDS: BUPIVACAINE/EPINEPHRINE 0.5% 50 ML VIAL 20 ML INFILTRATE (12:56)
[2023-12-10 13:47] VITALS: BP 110/52; PULSE 85; RESP 16; O2SAT 98
--- NOTE | 2023-12-10 14:00 | W.PM.PROC2 ---
Procedure Note - Detailed Date of Procedure 12/10/23 Pre-op Diagnosis basal cell skin cancer left shoulder 3.2cm Post-op Diagnosis Same Procedure Performed Excision 3.2 cm basal cell skin cancer left upper back with 5 mm margins, 4.2 cm excision. 11 cm layered closure. Surgeon Chema Esquivel MD Bridge Repair Crew Person Haley Madsen, MULTIPLE DRILL OPERATOR Anesthesia General (G IV S) and Local Indications Patient had a punch biopsy of a left upper back, left shoulder skin lesion that had been bleeding. This showed basal cell carcinoma. The lesion measured 2.2 cm prior to the punch biopsies but it has been 5 months since then and the lesion now measures 3.2 cm by 2 cm. She is taken to surgery now for excision. Findings Lesion removed with 5 mm margins. Description of Procedure Patient was checked in the preoperative holding area. The lesion was measured and was 3.2 cm. The proposed elliptical excision was marked on the left upper back and left shoulder area. Patient was taken to surgery and anesthesia was introduced. Patient was placed in right lateral decubitus position. The area of the excision was then prepped and draped. Local anesthetic was infiltrated in the areas of the anticipated excision and underneath the skin in the areas of the ellipse. Incision was made and carried out throughout the length of the proposed ellipse. The skin was then elevated and gently dissected off the subcutaneous fat taking a little bit of subcutaneous fat with the area of the skin cancer. Once the lesion was excised, hemostasis was achieved with the cautery. The length of the result wound was 11 cm. The wound was closed with subcuticular interrupted 3-0 Vicryl suture. The skin was finally closed with a running 4-0 Monocryl skin suture. Wound was dressed with Exofin surgical adhesive. The patient was awakened and taken to outpatient surgery in good condition. Sponge needle counts were correct x2. Estimated Blood Loss -5 Drains No Packing No Pathology Yes (Skin lesion left upper back) Complications None Condition Stable Disposition Same day [facility] Billing Surgery - Charge Forward: Surgery Billing (Excision 3.2 cm basal cell skin cancer left upper back with 5 mm margins, 11 cm layered closure.)
[2023-12-10 14:13] VITALS: BP 111/48; PULSE 80; RESP 16
[2023-12-10 14:36] VITALS: BP 104/46; PULSE 81; RESP 16
== END 2023-12-10 14:40 | disposition home or self-care (01) ==
PROVIDERS: PCP Nurse Practitioner Adult Health; Visit Provider Surgery
PROC: (CPT 11606; principal; 2023-12-10 12:00)
DX: C44.519 Basal cell carcinoma of skin of other part of trunk (principal); I10 Essential (primary) hypertension; E78.2 Mixed hyperlipidemia; E03.9 Hypothyroidism, unspecified; R73.03 Prediabetes; E55.9 Vitamin D deficiency, unspecified; G89.18 Other acute postprocedural pain; Z78.0 Asymptomatic menopausal state; Z79.82 Long term (current) use of aspirin; Z98.890 Other specified postprocedural states; Z98.51 Tubal ligation status; Z87.442 Personal history of urinary calculi; Z80.3 Family history of malignant neoplasm of breast; Z80.49 Family history of malignant neoplasm of other genital organs
CPT/HCPCS: 11606; 12034; 88304; 88305; J0690; J2250; J2704; J3010; J7120

== ENCOUNTER 2024-01-28 13:43 | Outpatient (CLI) | payer MEDICARE, OTHER, SELFPAY ==
[2024-01-28 13:57] LABS: Basophils Absolute Auto 0.1 K/mm3 (0.0-0.1); Basophils Percent Auto 1.4 % (0.2-1.2); Eosinophils Absolute Auto 0.1 K/mm3 (0-0.3); Eosinophils Percent Auto 1.6 % (0-4.4); Hematocrit 41.8 % (37.0-47.0); Hemoglobin 13.6 g/dL (12.0-15.0); Immature Granulocyte Absolute 0.01 K/mm3 (0.00-0.031); Immature Granulocyte Percent A 0.1 % (0-0.5); Lymphocytes Absolute Auto 1.67 K/mm3 (0.9-3.2); Lymphocytes Percent Auto 22.9 % (18.3-44.2); Mean Corpuscular HGB Conc 32.5 g/dl (32-36); Mean Corpuscular Hemoglobin 34.6 pg (26-34); Mean Corpuscular Volume 106.4 fl (80-100); Mean Platelet Volume 9.2 fl (7.4-10.4); Monocytes Absolute Auto 0.5 K/mm3 (0.1-0.6); Neutrophils Absolute Auto 4.9 K/mm3 (1.3-6.7); Platelet Count Result 577 k/mm3 (150-375); Red Blood Count 3.93 M/mm3 (4.2-5.4); Red Cell Distribution Width 13.2 % (11.5-14.5); White Blood Count 7.3 K/mm3 (4.5-10.0)
== END 2024-01-28 13:44 | disposition home or self-care (01) ==
LOC: ANHLAB 13:46
PROVIDERS: PCP Nurse Practitioner Adult Health; Visit Provider Internal Medicine Hematology & Oncology
DX: D47.3 Essential (hemorrhagic) thrombocythemia (principal)
CPT/HCPCS: 36415; 85025

== ENCOUNTER 2024-04-15 09:14 | Outpatient (CLI) | payer MEDICARE, OTHER, SELFPAY ==
[2024-04-15 09:26] LABS: Hematocrit 40.7 % (37.0-47.0); Hemoglobin 12.9 g/dL (12.0-15.0); Mean Corpuscular HGB Conc 31.7 g/dl (32-36); Mean Corpuscular Hemoglobin 33.5 pg (26-34); Mean Corpuscular Volume 105.7 fl (80-100); Mean Platelet Volume 9.4 fl (7.4-10.4); Platelet Count Result 635 k/mm3 (150-375); Red Blood Count 3.85 M/mm3 (4.2-5.4); Red Cell Distribution Width 12.9 % (11.5-14.5); White Blood Count 7.2 K/mm3 (4.5-10.0)
== END 2024-04-15 09:15 | disposition home or self-care (01) ==
PROVIDERS: PCP Nurse Practitioner Adult Health; Visit Provider Internal Medicine Hematology & Oncology
DX: D47.3 Essential (hemorrhagic) thrombocythemia (principal)
CPT/HCPCS: 36415; 85027

== ENCOUNTER 2024-06-08 07:43 | Outpatient (CLI) | payer MEDICARE, OTHER, SELFPAY ==
--- NOTE | ~2024-06-08 | MM_ITS ---
EXAMINATION: MM screening angela BI w susanne HISTORY: Screening TECHNIQUE: Craniocaudal and mediolateral oblique 3-D tomosynthesis images were obtained and synthetic 2-D images were generated. CAD analysis was submitted and interpreted. COMPARISON: Comparison to multiple prior studies sequentially, with oldest reviewed study dated 06/25. BREAST PARENCHYMAL COMPOSITION: Not dense: There are scattered areas of fibroglandular density. FINDINGS: There is developing asymmetry in the lateral aspect of the right breast on CC view. There i s a developing mass in the lower central aspect of the left breast, middle third. IMPRESSION: 1. Developing asymmetry of the right breast. Developing left breast mass. 2. Additional mammographic views and possible breast ultrasound are recommended. BI-RADS Category 0: Incomplete: Needs additional imaging evaluation. Reviewed, dictated and finalized at location B. ROAD TRACK MECHANIC IMPRESSION: 1. Developing asymmetry of the right breast. Developing left breast mass. 2. Additional mammographic views and possible breast ultrasound are recommended . BI-RADS Category 0: Incomplete: Needs additional imaging evaluation.
--- OUTSIDE RECORDS SUMMARY | 2024-06-08 07:48 | XMS_ITS | Clinical Summary ---
Author Organization [facility] Cleopatra Medina Address [address] [place] [address] Care Team Providers Care Supercalender Operator Helper Name Role Phone Reilly De Jesus MD Primary Care Provider [phone] Allergies Active Allergy Reactions Criticality Noted Date Comments Amoxicillin Rash Low 01/30/2020 Cefaclor Rash Low 01/30/2020 Medications levothyroxine 50 mcg tablet TK 1 T PO D 0 Active losartan (COZAAR) 50 mg tablet TK 1 T PO D 0 Active hydroCHLOROthiazide (HYDRODIURIL) 12.5 mg tablet TK 1 T PO D 0 Active cyanocobalamin 1,000 mcg Tablet Take 1,000 mcg by mouth daily. Active hydroxyurea (HYDREA) 500 mg capsuleIndications:E ssential thrombocythemia (CMS/HCC) Take 1 capsule by mouth twice a day. 60 Capsule 1 3 Active cholecalciferol 1,250 mcg (50,000 unit) Capsule Take by mouth. Active Active Problems Problem Noted Date Diagnosed Date Essential thrombocythemia 03/06/2020 Encounters Date Type Department Care Team Description 05/25/2024 External Device Data STL ABSTRACTION Provider, Abstract 05/25/2024 External Device Data STL ABSTRACTION Provider, Abstract 05/18/2024 External Device Data STL ABSTRACTION Provider, Abstract 04/18/2024 Orders Only [facility] Oncology and Hematology - [place] [address] [place] [address] Tanner Miller MD 04/15/2024 10:00 AM ASSOCIATE DIRECTOR REGULATORY AFFAIRS Office Visit [facility] Hematology - [place] [address] [place] [address] Tanner Miller MD Essential thrombocythemia (CMS/HCC) (Primary Dx) from Last 3 Months Family History Medical History Relation Name Comments Heart Disease Brother Heart Disease Father Heart Disease Mother Relation Name Status Comments Brother Alive Daughter 1 Alive Daughter 2 Alive Father Mother Social History Tobacco Use Types Packs/Day Years Used Date Smoking Tobacco: Never Smokeless Tobacco: Never Tobacco Cessation:Counseling Given: Not Answered Alcohol Use Standard Drinks/Week Comments Never 0 (1 standard drink = 0.6 oz pur e alcohol) Comments No Sex and Gender Information Value Date Recorded Sex Assigned at Not on file Legal Sex Female 9:15 AM CDT Gender Identity Not on file Sexual Orientation Not on file Last Filed Vital Signs Vital Sign Reading Time Taken Comments Blood Pressure 125/73 04/15/2024 10:07 AM ASSOCIATE DIRECTOR REGULATORY AFFAIRS Pulse 71 04/15/2024 10:07 AM ASSOCIATE DIRECTOR REGULATORY AFFAIRS Temperature 36.6 ??C (97.8 ??F) 04/15/2024 10:07 AM C Respiratory Rate 16 04/15/2024 10:07 AM ASSOCIATE DIRECTOR REGULATORY AFFAIRS Oxygen Saturation 94% 04/15/2024 10:07 AM ASSOCIATE DIRECTOR REGULATORY AFFAIRS Inhaled Oxygen Concentration - - Weight 64.9 kg (143 lb) 04/15/2024 10:07 AM ASSOCIATE DIRECTOR REGULATORY AFFAIRS Height 160 cm (5' 3 ) 11/14/2021 1:59 PM CDT Body Mass Index 25.33 11/14/2021 1:59 PM CDT Plan of Treatment Upcoming Encounters Date Type Department Care Team (Late st Contact Info) Description 07/15/2024 12:00 PM CDT Office Visit [facility] Oncology and Hematology - [place] [address] [place] [address] Tanner Miller MD [address] [place] [address] Health Maintenance Due Date Last Done Comments DTAP/TDAP/TD VACCINES (1 - Tdap) 02/08/1975 BREAST CANCER SCREENING 1996 COLORECTAL SCREENING 02/08/2001 Colorectal Cancer Screening 02/08/2001 FIT-DNA Q 3 years 02/08/2001 FIT/FOBT Q 1 year 02/08/2001 Flex Sig/CT Colonography Q 5 years 02/08/2001 PNEUMOCOCCAL VACCINE 65+ YEARS (1 of 1 - PCV) 02/09/20 06 ZOSTER VACCINE (1 of 2) 02/08/2006 OSTEOPOROSIS SCREENING 02/08/2021 INFLUENZA VACCINE (#1) 2023 Pre-Diabetes and Diabetes Screening 07/15/202407/15 RSV VACCINE (60+ or ) (1 - 1-dose 75+ series) 02/08/2031 Procedures Procedure Name Priority Date/Time Associated Diagnosis Comments CBC WITH DIFFERENTIAL Routine 04/15/2024 11:16 AM ASSOCIATE DIRECTOR REGULATORY AFFAIRS HEMOGLOBIN A1C Routine 07/15/2021 from Last 3 Months or Most Recently Relevant to Health Maintenance Results * CBC WITH DIFFERENTIAL (04/15/2024 11:16 AM ASSOCIATE DIRECTOR REGULATORY AFFAIRS) Blood Tanner Miller MD HEMATOLOGY ORDERABLES Final Res ult * HEMOGLOBIN A1C (07/15/2021) Blood Abstract Provider CHEMISTRY ORDERABLES Final Res ult from Last 3 Months or Most Recently Relevant to Health Maintenance Insurance MEDICARE PART A AND B [facility] [address] Advance Directives For more information, please contact: [phone] Documents on File Type Date Recorded Patient Regional Geodetic Advisor Expl anation Advance Directive POA 01/30/2020 10:46 AM Advance Directive POA Care Teams Supercalender Operator Helper Relationship Specialty Start Date End Date Reilly De Jesus MD PCP - General Family Practice 10/16/22
--- OUTSIDE RECORDS SUMMARY | 2024-06-08 07:48 | XMS_ITS | CONTINUITY OF CARE DOCUMENT ---
Author Name yumiko calderon Address Unknown Organization [facility] Address [address] [place] [address] Phone [phone] Care Team Providers Care Anchorman Name Role Phone yumiko calderon Unavailable Unavailable INSURANCE PROVIDERS Payer name Policy type / Coverage type [place] red alliance party ID [facility] [id number]
--- OUTSIDE RECORDS SUMMARY | 2024-06-08 07:48 | XMS_ITS | Continuity of Care Document ---
Author Organization [facility] Address [address] [place] [address] Phone Care Team Providers Care Fuel Oil Clerk Name Role Phone Jorge Desir Unavailable Unavailable Advance Directives Directive Yes / No Effective Date File Name No Information Encounters Encounter Description Practice Location Reason(s) For Visit Diagnoses Date Provider Providers Copied on Encounter [facility], [address] [place] [address] [address], [place], [place], [id number], [place] tel:[phone] [facility] No Information Thang Patel. [address] [place] [address], [facility], . tel:[phone] Referring Provider: Jorge Arredondo, [address] [place], [place], [facility]. tel:[phone] Family History Family Member Type Diagnosis Age At Onset No Information Payers Payer name Insurance type Covered libertarian ID Authoriza tion(s) No Information Social History Type Description Quantity Date Captured Comments Sex Female Smoking Status No Information Chief Complaint And Reason For Visit No Information Reason For Referral Reason For Referral No Information History Of Present Illness Encounter Date Complaint History Of Prese nt Illness No Information Functional Status Date Functional Assessmen t No Information Instructions Date Instruction Additional Infor mation No Information Assessments Type Assessment Date No Information Patient Care Teams Name Effective Dates (start - stop) Status Members No Information
== END 2024-06-08 07:44 | disposition home or self-care (01) ==
PROVIDERS: PCP Nurse Practitioner Adult Health; Visit Provider Obstetrics & Gynecology
DX: Z12.31 Encounter for screening mammogram for malignant neoplasm of breast (principal); R92.8 Other abnormal and inconclusive findings on diagnostic imaging of breast
CPT/HCPCS: 77063; 77067

== ENCOUNTER 2024-06-22 12:52 | Outpatient (CLI) | payer MEDICARE, OTHER, SELFPAY ==
--- NOTE | ~2024-06-22 | MMUS_ITS ---
EXAMINATION: MM diagnostic angela BI w susanne, US breast BI limited HISTORY: Follow-up right breast asymmetry and left breast mass TECHNIQUE: Additional 3-D tomosynthesis images of the breasts were performed and synthetic 2-D images were generated. CAD analysis was submitted and interpreted. High resolution limited bilateral breast ultrasound was performed. COMPARISON: Comparison to multiple prior studies sequentially, with oldest reviewed study dated 08/16. BREAST PARENCHYMAL COMPOSITION: Not dense: There are scattered areas of fibroglandular density. FINDINGS: MAMMOGRAPHIC FINDINGS: There are no suspicious masses, calcifications or architectural distortion in the right breast to sug gest malignancy. There is a stable low-density mass in the lower central aspect of the left breast, m iddle third. ULTRASOUND: Limited right breast ultrasound: At 8:00, 4 cm from the nipple there is a 3 mm cyst. At 9:00, 6 cm fr om the nipple there are cysts. At 11:00, 6 cm from the nipple there is a 5 mm cyst. Limited left breast ultrasound: At 6:00, 3 cm from the nipple there is a 5 mm cyst corresponding to t he mammographic finding. No suspicious masses in either breast to suggest malignancy. IMPRESSION: 1. No evidence for malignancy in either breast. Benign findings. 2. Routine yearly screening mammogram and regular clinical breast examination are recommended. BI-RADS Category 2: Benign finding(s). Reviewed, dictated and finalized at location B. ER IMPRESSION: 1. No evidence for malignancy in either breast. Benign findings. 2. Routine yearly screening mammogram and regular clinical breast examination a re recommended. BI-RADS Category 2: Benign finding(s).
--- OUTSIDE RECORDS SUMMARY | 2024-06-22 12:58 | XMS_ITS | Clinical Summary ---
Author Organization [facility] Cleopatra Medina Address [address] [place] [address] Care Team Providers Care Hull Line Crew Member Name Role Phone Reilly De Jesus MD Primary Care Provider [phone] Allergies Active Allergy Reactions Criticality Noted Date [...] STL ABSTRACTION Provider, Abstract 04/18/2024 Orders Only [facility] Oncology and Hematology - [place] [address] [place] [address] Tanner Miller MD 04/15/2024 10:00 AM DOOR ASSEMBLER Office Visit [facility] Oncology and Hematology - [place] [address] [place] [address] Tanner Miller MD Essential thrombocythemia [...] Comments Blood Pressure 125/73 04/15/2024 10:07 AM DOOR ASSEMBLER Pulse 71 04/15/2024 10:07 AM DOOR ASSEMBLER Temperature 36.6 C (97.8 F) 04/15/2024 10:07 AM DOOR ASSEMBLER Respiratory Rate 16 04/15/2024 10:07 AM DOOR ASSEMBLER Oxygen Saturation 94% 04/15/2024 10:07 AM DOOR ASSEMBLER Inhaled Oxygen Concentration - - Weight 64.9 kg (143 lb) 04/15/2024 10:07 AM DOOR ASSEMBLER Height 160 cm (5' 3 ) 11/14/2021 1:59 PM CDT Body Mass Index 25.33 11/14/2021 1:59 PM CDT Plan of Treatment Upcoming Encounters Date Type Department Care Team (Late st Contact Info) Description 07/15/2024 12:00 PM CDT Office Visit [facility] Oncology and Hematology - [place] [address] [place] [address] Tanner Miller MD [address] [facility] [address] [place] [address] Health Maintenance Due Date Last [...] CBC WITH DIFFERENTIAL Routine 04/15/2024 11:16 AM DOOR ASSEMBLER HEMOGLOBIN A1C Routine 07/15/2021 from Last 3 Months or Most Recently Relevant to Health Maintenance Results * CBC WITH DIFFERENTIAL (04/15/2024 11:16 AM DOOR ASSEMBLER) Blood Tanner Miller MD HEMATOLOGY ORDERABLES Final Res ult * HEMOGLOBIN A1C (07/15/2021) Blood Abstract Provider CHEMISTRY ORDERABLES Final Res ult from Last 3 Months or Most Recently Relevant to Health Maintenance Insurance MEDICARE PART A AND B [facility] Advance Directives For more information, please contact: [phone] Documents on File Type Date Recorded Patient Perforator Expl anation Advance Directive POA 01/30/2020 10:46 AM Advance Directive POA Care Teams Hull Line Crew Member Relationship Specialty Start Date End Date Reilly De Jesus MD PCP - General Family Practice 10/16/22
--- OUTSIDE RECORDS SUMMARY | 2024-06-22 12:58 | XMS_ITS | Continuity of Care Document ---
Author Organization [facility] Address [address] [place] [address] Phone Care Team Providers Care Medicaid Analyst Name Role Phone Jorge Desir Unavailable Unavailable Advance Directives Directive Yes / No Effective Date File Name No Information Encounters Encounter Description Practice Location Reason(s) For Visit Diagnoses Date Provider Providers Copied on Encounter [facility], [address] [place] [address] [address], [place], [place], [id number], [place] tel:[phone] [facility] No Information Thang Patel. [address] [place] [address], [facility], . tel:[phone] Referring Provider: Jorge Arredondo, [address] [place], [place], [facility]. tel:[phone] Family History Family Member Type Diagnosis Age At Onset No Information Payers Payer name Insurance type Covered democrat ID Authoriza tion(s) No Information Social History [...]
== END 2024-06-22 12:53 | disposition home or self-care (01) ==
LOC: ANHIMG 12:52
PROVIDERS: PCP Nurse Practitioner Adult Health; Visit Provider Obstetrics & Gynecology
DX: R92.8 Other abnormal and inconclusive findings on diagnostic imaging of breast (principal)
CPT/HCPCS: 76642; 77062; 77066; G0279

== ENCOUNTER 2024-07-15 11:16 | Outpatient (CLI) | payer MEDICARE, OTHER, SELFPAY ==
[2024-07-15 11:35] LABS: Basophils Percent Auto 0.7 % (0.2-1.2); Eosinophils Absolute Auto 0.1 K/mm3 (0-0.3); Eosinophils Percent Auto 1.1 % (0-4.4); Hematocrit 37.6 % (37.0-47.0); Hemoglobin 12.4 g/dL (12.0-15.0); Immature Granulocyte Absolute 0.01 K/mm3 (0.00-0.031); Immature Granulocyte Percent A 0.2 % (0-0.5); Lymphocytes Absolute Auto 1.79 K/mm3 (0.9-3.2); Mean Corpuscular Volume 109.3 fl (80-100); Mean Platelet Volume 9.3 fl (7.4-10.4); Monocytes Absolute Auto 0.4 K/mm3 (0.1-0.6); Monocytes Percent Auto 7.2 % (2.6-8.5); Neutrophils Absolute Auto 3.1 K/mm3 (1.3-6.7); Neutrophils Percent Auto 57.8 % (45.5-73.1); Platelet Count Result 365 k/mm3 (150-375); Red Blood Count 3.44 M/mm3 (4.2-5.4); Red Cell Distribution Width 13.9 % (11.5-14.5); White Blood Count 5.4 K/mm3 (4.5-10.0)
[2024-07-15 11:39] LABS: Blood Urea Nitrogen 10 mg/dL (8-26); Carbon Dioxide 28 mmol/L (22-30); Chloride 102 mmol/L (98-109); Estimated Glomerular Filt Rate 28; Glucose 111 mg/dL (70-105); Ionized Calcium (POC) 1.19 mmol/L (1.11-1.31); Potassium 4.1 mmol/L (3.5-4.9); Sodium 140 mmol/L (138-146)
--- OUTSIDE RECORDS SUMMARY | 2024-07-15 12:08 | XMS_ITS | CONTINUITY OF CARE DOCUMENT ---
Author Name yumiko calderon Address Unknown Organization [facility] Address [address] [place] [address] Phone [phone] Care Team Providers Care Anchorer Name Role Phone yumiko calderon Unavailable Unavailable INSURANCE PROVIDERS Payer name Policy type / Coverage type [place] red constitution party ID [facility] [id number]
--- OUTSIDE RECORDS SUMMARY | 2024-07-15 12:08 | XMS_ITS | Encounter Summary ---
Author Organization [facility] [employer] [employer] Address [address] [place] [address] Care Team Providers Care Logistics Management Specialist Name Role Phone Reilly De Jesus MD Primary Care Provider [phone] Reason for Visit * Reason Comments Follow Up Encounter Details Date Type Department Care Team (Late st Contact Info) Description 07/15/2024 12:00 PM CDT Office Visit [facility] Oncology and Hematology - [place] [address] [place] [address] [facility] [address] [place] [address] Tanner Miller MD [address] [facility] [address] [place] [address] Essential thrombocythemia (CMS/HCC) (Primary Dx) Social History Tobacco Use Types Packs/Day Years [...] on file Sexual Orientation Not on file documented as of this encounter Last Filed Vital Signs Vital Sign Reading Time Taken Comments Blood Pressure 137/74 07/15/2024 11:34 AM CDT Pulse 87 07/15/2024 11:34 AM CDT Temperature 36.6 C (97.8 F) 07/15/2024 11:34 AM CDT Respiratory Rate 15 07/15/2024 11:34 AM CDT Oxygen Saturation 96% 07/15/2024 11:34 AM CDT Inhaled Oxygen Concentration - - Weight 63.2 kg (139 lb 6.4 oz) 07/15/2024 11:34 AM CDT Height - - Body Mass Index 24.69 11/14/2021 1:59 PM CDT documented in this encounter Progress Notes * Tanner Miller MD - 07/15/2024 11:33 AM CDT HEMATOLOGY / ONCOLOGY PROGRESS NOTE Patient Identification: Name: Mei Valentino Age: 69 y.o. Sex: female : 1955 DIAGNOSIS Essential thrombocythemia JAK2 mutation positive CURRENT TREATMENT Hydroxyurea 500 mg alternating with 1 g daily started in June 2020 TREATMENT HISTORY Hydroxyurea 500 mg twice a day along with allopurinol started February 15, 2020 SUBJECTIVE Patient came into the office for follow-up visit. She is taking hydroxyurea 500 mg twice a day and tolerating it well. Denies any nausea vomiting. No diarrhea and constipation. No rash. Weight and appetite stable. No other new complaints. Review of system Constitutional: denies fevers, sweats, denies any tiredness and fatigue, weight and appetite stable HEENT: denies sinus congestion, hearing or vision problems Respiratory: denies cough, dyspnea, wheeze Cardiovascular: denies chest pain, exertional chest pressure/discomfort, nausea, syncope, shortnessof breath GI: denies constipation, dsyphagia, reflux symptoms, vomiting, melena, denies any diarrhea : denies dysuria, frequency, incontinence, urgency Integumentary system: no lymphadenopathy, sweats, flushing Musculoskeletal: denies: myalgia, arthralgia 12 point review of system was reviewed Objective: Vital signs in last 24 hours: As per nursing note Exam: General appearance: alert, cooperative, no distress, appears stated age Head: normocephalic, without obvious abnormality, atraumatic Eyes: conjunctivae/corneas clear, EOM's intact Ears: normal external ear canals AU Nose: Nares normal. Septum midline. Mucosa normal. No drainage or sinus tenderness Throat: Lips, mucosa, and tongue normal. Teeth and gums normal Neck: supple, symmetrical, trachea midline. Lungs: clear to auscultation bilaterally Heart: regular rate and rhythm, S1, S2 normal, no murmur, click, rub or gallop Abdomen: soft, non-tender. Bowel sounds normal. No masses, No organomegaly Extremities: extremities normal, atraumatic, no cyanosis or edema Skin: Skin color, texture, turgor normal. No rashes or lesions Lymph nodes: No lymphadenopathy Neuro: No obvious focal deficit Exam as above PATH LABS From February 07, 2020 showed C-reactive protein 7.1 sedimentation rate 6 WBC 11 hemoglobin 14.3 platelet 1.128 million iron 59 iron saturation 18% ferritin 72 Labs from March 06 showed WBC 5.3 hemoglobin 14.4 platelet 759,000 creatinine 1.0 Labs from March 21 showed WBC 6.4 hemoglobin 14.3 platelet 533,000 creatinine 0.9 Labs from April 19 showed hemoglobin 13.6 platelet 442,000. Labs from showed WBC 8.7 hemoglobin 14 platelet 634,000. Labs from August 26 showed WBC 6.5 hemoglobin 14 platelet 414,000 creatinine 4.7 Labs from October 22 showed WBC 6.9 hemoglobin 14.1 platelet 456,000 creatinine 3.5. Labs from January 15 creatinine 0.6 WBC 6.0 hemoglobin 13.8 platelet 454,000 Labs from July 15 showed WBC 8.7 hemoglobin 14.3 platelet 547,000 creatinine 1.2 Labs from November 14 showed WBC 6.7 hemoglobin 13 platelet 484,000 creatinine 1.3 Labs from March 20 showed WBC 6.6 hemoglobin 13 platelet 469,000 creatinine 1.1 Labs from June 18 showed hemoglobin 13.1 platelet 520,000 creatinine 0.5 Labs on October 16 showed WBC 6.8 hemoglobin 13.9 platelet 484,000 creatinine 1.3 Labs from February 18 showed WBC 5.5 hemoglobin 13.2 platelet 4 62,000 Labs from June 23 show WBC 5.9 hemoglobin 13.6 platelet 534,000 creatinine 1.2 Labs from October 27 showed WBC 10.4 hemoglobin 13.3 platelet 645,000 creatinine 1.6 6 lab from January 27 showed hemoglobin 13.6 platelet 577,000 Labs from April 15 showed WBC 7.2 hemoglobin 12.9 platelet 635,000 Labs from July 15 showed WBC 5.4 hemoglobin 12.4 platelet 365,000 creatinine 1.8 Assessment: Plan: Patient Active Problem List Diagnosis Date Noted Essential thrombocythemia ([facility]/HCC) 03/06/2020 Essential thrombocythemia. JAK2 mutation positive. Labs noted. There is a significant improvement in the platelet count now down to 365,000. Will continue hydroxyurea 500 mg twice a day that she has been tolerating well. She will continue baby aspirin. Follow-up in 2 months. Tumor lysis. Continue adequate hydration. 07/15/2024 Tanner Miller MD documented in this encounter Plan of Treatment Upcoming Encounters Date Type Department Care Team (Late st Contact Info) Description 09/15/2024 2:00 PM CDT Office Visit [facility] Oncology and Hematology - [place] [address] [facility] [address] [place] [address] Tanner Miller MD [address] [facility] [address] [place] [address] Scheduled Orders Name Type Priority Associated Diagnoses Orde r Schedule CBC WITHOUT DIFFERENTIAL Lab Stat Essential thrombocythemia (CMS/HCC) Expected: 09/09/2024, Expires: 07/15/2025 BASIC METABOLIC PANEL Lab Stat Essential thrombocythemia (CMS/HCC) Expected: 09/09/2024, Expires: 07/15/2025 documented as of this encounter Visit Diagnoses Diagnosis Essential thrombocythemia (CMS/HCC)- Primary Essential thrombocythemia documented in this encounter Care Teams Logistics Management Specialist Relationship Specialty Start Date End Date Reilly De Jesus MD PCP - General Family Practice 10/16/22 documented as of this encounter
--- OUTSIDE RECORDS SUMMARY | 2024-07-15 12:08 | XMS_ITS | Continuity of Care Document ---
Author Organization [facility] Address [address] [place] [address] Phone Care Team Providers Care String Top Sealer Name Role Phone Jorge Desir Unavailable Unavailable Advance Directives Directive Yes / No Effective Date File Name No Information Encounters Encounter Description Practice Location Reason(s) For Visit Diagnoses Date Provider Providers Copied on Encounter [facility], [address] [place] [address] [address], [place], [place], [id number], [place] tel:[phone] [facility] No Information Thang Patel. [address] [place] [address], [facility], . tel:[phone] Referring Provider: Jorge Arredondo, [address] [place], [place], [facility]. tel:[phone] Family History Family Member Type Diagnosis Age [...]
--- OUTSIDE RECORDS SUMMARY | 2024-07-15 12:08 | XMS_ITS | Clinical Summary ---
Author Organization [facility] Address [address] [place] [address] Care Team Providers Care Supervisor Steffen House Name Role Phone Reilly De Jesus MD Primary Care Provider [phone] Allergies Active Allergy Reactions Criticality Noted Date [...] Encounters Date Type Department Care Team Description 07/15/2024 12:00 PM CDT Office Visit [facility] Oncology and Hematology - [place] [address] [place] [address] Tanner Miller MD Essential thrombocythemia (CMS/HCC) (Primary Dx) 07/12/2024 Orders Only [facility] Oncology and Hematology [place] [address] [place] [address] Tanner Miller MD Essential thrombocythemia (CMS/HCC) (Primary Dx) 07/09/2024 External Device Data STL ABSTRACTION Provider, Abstract 07/08/2024 External Device Data STL ABSTRACTION Provider, Abstract 07/06/2024 External Device Data STL ABSTRACTION Provider, Abstract 07/05/2024 External Device Data STL ABSTRACTION Provider, Abstract 06/21/2024 External Device Data STL ABSTRACTION Provider, Abstract 05/25/2024 External Device Data STL ABSTRACTION Provider, Abstract 05/25/2024 External Device Data STL ABSTRACTION Provider, Abstract 05/18/2024 External Device Data STL ABSTRACTION Provider, Abstract 04/18/2024 Orders Only [facility] Oncology and Hematology - [place] [address] [place] [address] [address] Tanner Miller MD from Last 3 Months Family History Medical [...] 6.4 oz) 07/15/2024 11:34 AM CDT Height 160 cm (5' 3 ) 11/14/2021 1:59 PM CDT Body Mass Index 24.69 11/14/2021 1:59 PM CDT Plan of Treatment Upcoming Encounters Date Type Department Care Team (Late st Contact Info) Description 09/15/2024 2:00 PM CDT Office Visit [facility] Oncology and Hematology - [place] [address] [facility] [address] [place] [address] Tanner Miller MD [address] [facility] [address] [place] [address] Health Maintenance Due Date Last Done Comments DTAP/TDAP/TD VACCINES (1 - Tdap) 02/08/1975 Traditional Medicare (ACO) Annual Wellness Visit 02/08 BREAST CANCER SCREENING 1996 COLORECTAL SCREENING 02/08/2001 Colorectal Cancer Screening 02/08/2001 FIT-DNA Q 3 years 02/08/2001 FIT/FOBT Q 1 year 02/08/2001 Flex Sig/CT Colonography Q 5 years 02/08/2001 PNEUMOCOCCAL VACCINE 50+ YEARS (1 of 1 - PCV) 02/09/20 06 ZOSTER VACCINE (1 of 2) 02/08/2006 OSTEOPOROSIS SCREENING 02/08/2021 INFLUENZA VACCINE (#1) 2023 Pre-Diabetes and Diabetes Screening 07/15/202407/15 RSV VACCINE (60+ or ) (1 - 1-dose 75+ series) 02/08/2031 Procedures Procedure Name Priority Date/Time Associated Diagnosis Comments HEMOGLOBIN A1C Routine 07/15/2021 from Last 3 Months or Most Recently Relevant to Health Maintenance Results * HEMOGLOBIN A1C (07/15/2021) Blood us Abstract Provider CHEMISTRY ORDERABLES Final Res ult from Last 3 Months or Most Recently Relevant to Health Maintenance Insurance MEDICARE PART A AND B [facility] Advance Directives For more information, please contact: [phone] Documents on File Type Date Recorded Patient Sheet Heater Helper Expl anation Advance Directive POA 01/30/2020 10:46 AM Advance Directive POA Care Teams Supervisor Steffen House Relationship Specialty Start Date End Date Reilly De Jesus MD PCP - General Family Practice 10/16/22
== END 2024-07-15 11:17 | disposition home or self-care (01) ==
LOC: ANHLAB 11:17
PROVIDERS: PCP Nurse Practitioner Adult Health; Visit Provider Internal Medicine Hematology & Oncology
DX: D47.3 Essential (hemorrhagic) thrombocythemia (principal)
CPT/HCPCS: 36415; 80047; 85025

== ENCOUNTER 2024-07-25 07:09 | Outpatient (CLI) | payer MEDICARE, OTHER, SELFPAY ==
--- OUTSIDE RECORDS SUMMARY | 2024-07-25 07:13 | XMS_ITS | Continuity of Care Document ---
Author Organization [facility] Address [address] [place] [address] Phone Care Team Providers Care Transmissions Systems Operator Name Role Phone Jorge Desir Unavailable Unavailable Advance Directives Directive Yes / No Effective Date File Name No Information Encounters Encounter Description Practice Location Reason(s) For Visit Diagnoses Date Provider Providers Copied on Encounter [facility], [address] [place] [address] [address], [place], [place], [id number], [place] tel:[phone] [facility] No Information Thang Patel. [address] [place] [address], [facility], . tel:[phone] Referring Provider: Jorge Arredondo, [address] [place], [place], [facility]. tel:[phone] Family History Family Member Type Diagnosis Age At Onset No Information Payers Payer name Insurance type Covered republican ID Authoriza tion(s) No Information Social History [...]
--- OUTSIDE RECORDS SUMMARY | 2024-07-25 07:13 | XMS_ITS | Clinical Summary ---
Author Organization [facility] Address [address] [place] [address] Care Team Providers Care Csr Technician Name Role Phone Reilly De Jesus MD Primary Care Provider [phone] Allergies Active Allergy Reactions Criticality Noted Date [...] Encounters Date Type Department Care Team Description 07/20/2024 External Device Data STL ABSTRACTION Provider, Abstract 07/19/2024 Orders Only [facility] Oncology and Hematology - [place] [address] [place] [address] Tanner Miller MD 07/15/2024 12:00 PM CDT Office Visit [facility] Oncology and Hematology - [place] [address] [place] [address] Tanner Miller MD Essential thrombocythemia (CMS/HCC) (Primary Dx) 07/12/2024 Orders Only [facility] Oncology and Hematology - [place] [address] [place] [address] Tanner Miller MD Essential thrombocythemia (CMS/HCC) (Primary [...] External Device Data STL ABSTRACTION Provider, Abstract from Last 3 Months Family History Medical [...] Description 09/15/2024 2:00 PM CDT Office Visit [facility] Oncology and Hematology [facility] [address] [facility] [address] [place] [address] Tanner Miller MD [address] [facility] [address] [place] [address] Health Maintenance Due Date Last Done Comments DTAP/TDAP/TD VACCINES (1 - Tdap) 02/08/1975 Traditional Medicare (ACO) A nnual Wellness Visit 02/08/1975 COLORECTAL SCREENING 02/08/2001 Colorectal Cancer Screening 02/08/2001 FIT-DNA Q 3 years 02/08/2001 FIT/FOBT Q 1 year 02/08/2001 Flex Sig/CT Colonography Q 5 years 02/08/2001 PNEUMOCOCCAL VACCINE 50+ YEA RS (1 of 1 - PCV) 02/08/2006 ZOSTER VACCINE (1 of 2) 02/08/2006 OSTEOPOROSIS SCREENING 02/08/2021 BREAST CANCER SCREENING 11/15/2022 11/15/2021, 11/15 INFLUENZA VACCINE (#1) 2023 RSV VACCINE (60+ or ) (1 - 1-dose 75+ series) 02/08/2031 Procedures Procedure Name Priority Date/Time Associated Diagnosis Comments CBC WITH DIFFERENTIAL Routine 07/15/2024 4:58 PM CDT BASIC METABOLIC PANEL Routine 07/15/2024 4:45 PM CDT from Last 3 Months Results * CBC WITH DIFFERENTIAL (07/15/2024 4:58 PM CDT) Blood Tanner Miller MD HEMATOLOGY ORDERABLES Final Res ult * BASIC METABOLIC PANEL (07/15/2024 4:45 PM CDT) Blood us Tanner Miller MD CHEMISTRY ORDERABLES Final Resu lt from Last 3 Months Insurance MEDICARE PART A AND B [facility] Advance Directives For more information, please contact: [phone] Documents on File Type Date Recorded Patient Fire Alarm Inspector Expl anation Advance Directive POA 01/30/2020 10:46 AM Advance Directive POA Care Teams Csr Technician Relationship Specialty Start Date End Date Reilly De Jesus MD PCP - General Family Practice 10/16/22
--- OUTSIDE RECORDS SUMMARY | 2024-07-25 07:13 | XMS_ITS | CONTINUITY OF CARE DOCUMENT ---
Author Name yumiko calderon Address Unknown Organization [facility] Address [address] [place] [address] Phone [phone] Care Team Providers Care Radio Repair Teacher Name Role Phone yumiko calderon Unavailable Unavailable INSURANCE PROVIDERS Payer name Policy type / Coverage type [place] red democrat ID [facility] [id number]
[2024-07-25 20:59] LABS: Alanine Aminotransferase 13 U/L (6-35); Alkaline Phosphatase 68 U/L (38-126); Anion Gap 2 mmol/L (4-12); Aspartate Amino Transferase 60 U/L (14-36); Bilirubin,Total 0.7 mg/dL (0.2-1.3); Blood Urea Nitrogen 16 mg/dL (7-17); Calcium 9.3 mg/dL (8.4-10.2); Carbon Dioxide 33 mmol/L (22-30); Chloride 104 mmol/L (98-107); Cholesterol 205 mg/dL (0-200); Estimated Glomerular Filt Rate > 60; Glucose 84 mg/dL (65-110); HDL Direct 39 mg/dL; Potassium 4.6 mmol/L (3.4-5.0); Sodium 139 mmol/L (137-145); Triglycerides 92 mg/dL (<150)
[2024-07-25 21:10] LABS: LDL Cholesterol Direct 125 mg/dL
[2024-07-25 21:38] LABS: Hemoglobin A1C 5.4 % (<5.7)
== END 2024-07-25 07:10 | disposition home or self-care (01) ==
LOC: ANHBWCLAB 07:10
PROVIDERS: PCP Nurse Practitioner Adult Health; Visit Provider Nurse Practitioner Adult Health
DX: R73.03 Prediabetes (principal); E78.2 Mixed hyperlipidemia
CPT/HCPCS: 36415; 80053; 80061; 83036; 84443

== ENCOUNTER 2024-09-15 13:09 | Outpatient (CLI) | payer MEDICARE, OTHER, SELFPAY ==
--- OUTSIDE RECORDS SUMMARY | 2024-09-15 13:13 | XMS_ITS | Clinical Summary ---
Author Organization [facility] Address [address] [place] [address] Care Team Providers Care Financial Operations Analyst Name Role Phone Reilly De Jesus MD Primary Care Provider [phone] Allergies Active Allergy Reactions Criticality Noted Date [...] STL ABSTRACTION Provider, Abstract 07/19/2024 Orders Only [facility] Oncology and Hematology - [place] [address] [place] [address] Tanner Miller MD 07/15/2024 12:00 PM CDT Office Visit [facility] Oncology and Hematology - [place] [address] [place] [address] Tanner Miller MD Essential thrombocythemia (CMS/HCC) (Primary Dx) 07/12/2024 Orders Only [facility] Oncology and Hematology [facility] [address] [place] [address] Tanner Miller MD Essential thrombocythemia (CMS/HCC) (Primary [...] Description 09/15/2024 2:00 PM CDT Office Visit [facility] Oncology and Hematology [facility] [address] [facility] [address] [place] [address] Tanner Miller MD [address] [facility] [address] [place] [address] Health Maintenance Due Date Last Done Comments DTAP/TDAP/TD VACCINES (1 - Tdap) 02/08/1975 COLORECTAL SCREENING 02/08/2001 Colorectal Cancer Screening [...] METABOLIC PANEL (07/15/2024 4:45 PM CDT) Blood Tanner Miller MD CHEMISTRY ORDERABLES Final Resu lt from Last 3 Months Insurance MEDICARE PART A AND B [facility] [place] [address] Advance Directives For more information, please contact: [phone] Documents on File Type Date Recorded Patient Drum Stock Clerk Expl anation Advance Directive POA 01/30/2020 10:46 AM Advance Directive POA Care Teams Financial Operations Analyst Relationship Specialty Start Date End Date Reilly De Jesus MD PCP - General Family Practice 10/16/22
[2024-09-15 13:25] LABS: Hematocrit 39.1 % (37.0-47.0); Hemoglobin 13.1 g/dL (12.0-15.0); Mean Corpuscular HGB Conc 33.5 g/dl (32-36); Mean Corpuscular Hemoglobin 37.2 pg (26-34); Mean Corpuscular Volume 111.1 fl (80-100); Mean Platelet Volume 9.5 fl (7.4-10.4); Platelet Count Result 324 k/mm3 (150-375); Red Blood Count 3.52 M/mm3 (4.2-5.4); Red Cell Distribution Width 11.9 % (11.5-14.5); White Blood Count 6.4 K/mm3 (4.5-10.0)
[2024-09-15 13:29] LABS: Blood Urea Nitrogen 12 mg/dL (8-26); Carbon Dioxide 29 mmol/L (22-30); Chloride 99 mmol/L (98-109); Estimated Glomerular Filt Rate 55; Glucose 155 mg/dL (70-105); Ionized Calcium (POC) 1.17 mmol/L (1.11-1.31); Potassium 4.1 mmol/L (3.5-4.9); Sodium 140 mmol/L (138-146)
== END 2024-09-15 13:10 | disposition home or self-care (01) ==
LOC: ANHLAB 13:10
PROVIDERS: PCP Nurse Practitioner Adult Health; Visit Provider Internal Medicine Hematology & Oncology
DX: D47.3 Essential (hemorrhagic) thrombocythemia (principal)
CPT/HCPCS: 36415; 80047; 85027

== ENCOUNTER 2024-12-22 13:57 | Outpatient (CLI) | payer MEDICARE, OTHER, SELFPAY ==
[2024-12-22 14:09] LABS: Hematocrit 36.4 % (37.0-47.0); Hemoglobin 12.2 g/dL (12.0-15.0); Mean Corpuscular HGB Conc 33.5 g/dl (32-36); Mean Corpuscular Hemoglobin 37.4 pg (26-34); Mean Corpuscular Volume 111.7 fl (80-100); Platelet Count Result 305 k/mm3 (150-375); Red Blood Count 3.26 M/mm3 (4.2-5.4); White Blood Count 5.1 K/mm3 (4.5-10.0)
--- OUTSIDE RECORDS SUMMARY | 2024-12-22 14:10 | XMS_ITS | Clinical Summary ---
Author Organization [facility] Address [address] [place] [address] Care Team Providers Care Revenue Officer Name Role Phone Reilly De Jesus MD Primary Care Provider [phone] Allergies Active Allergy Reactions Criticality Noted Date [...] Encounters Date Type Department Care Team Description 12/07/2024 External Device Data STL ABSTRACTION Provider, Abstract 12/06/2024 External Device Data STL ABSTRACTION Provider, Abstract 11/16/2024 External Device Data STL ABSTRACTION Provider, Abstract 11/16/2024 External Device Data STL ABSTRACTION Provider, Abstract 11/15/2024 External Device Data STL ABSTRACTION Provider, Abstract 09/21/2024 External Device Data STL ABSTRACTION Provider, Abstract [...] Sign Reading Time Taken Comments Blood Pressure 124/77 09/15/2024 1:53 PM CDT Pulse 89 09/15/2024 1:53 PM CDT Temperature 36.2 C (97.2 F) 09/15/2024 1:53 PM CDT Respiratory Rate 15 09/15/2024 1:53 PM CDT Oxygen Saturation 94% 09/15/2024 1:53 PM CDT Inhaled Oxygen Concentration - - Weight 62.4 kg (137 lb 9.6 oz) 09/15/2024 1:53 P M CDT Height 160 cm (5' 3) 11/14/2021 1:59 PM CDT Body Mass Index 24.37 11/14/2021 1:59 PM CDT Plan of Treatment Upcoming Encounters Date Type Department Care Team (Late st Contact Info) Description 12/22/2024 2:45 PM CDT Office Visit [facility] Oncology and Hematology - [place] [address] [facility] [address] [place] [address] Tanner Miller MD [address] [facility] [address] [place] [address] Health Maintenance Due Date Last [...] 02/08/2006 OSTEOPOROSIS SCREENING 02/08/2021 INFLUENZA VACCINE (#1) 2024 BREAST CANCER SCREENING 06/22/2025 06/22/19 25, 06/08/2024, 06/08/2024, Additional history exists RSV VACCINE (60+ or ) (1 - 1-dose 75+ series) 02/08/2031 Insurance MEDICARE PART A AND B [facility] Advance Directives For more information, please contact: [phone] Documents on File Type Date Recorded Patient Hotel Houseman Expl anation Advance Directive POA 01/30/2020 10:46 AM Advance Directive POA Care Teams Revenue Officer Relationship Specialty Start Date End Date Reilly De Jesus MD PCP - General Family Practice 10/16/22
[2024-12-22 14:14] LABS: Blood Urea Nitrogen 14 mg/dL (8-26); Carbon Dioxide 28 mmol/L (22-30); Chloride 102 mmol/L (98-109); Estimated Glomerular Filt Rate 41; Glucose 145 mg/dL (70-105); Ionized Calcium (POC) 1.21 mmol/L (1.11-1.31); Potassium 4.0 mmol/L (3.5-4.9); Sodium 141 mmol/L (138-146)
== END 2024-12-22 13:58 | disposition home or self-care (01) ==
LOC: ANHLAB 13:58
PROVIDERS: PCP Nurse Practitioner Adult Health; Visit Provider Internal Medicine Hematology & Oncology
DX: D47.3 Essential (hemorrhagic) thrombocythemia (principal)
CPT/HCPCS: 36415; 80047; 85027